=== PATIENT | female | born 1985 | race Caucasian/White ===

== ENCOUNTER 2016-10-13 18:06 | Emergency (ER) ==
[2016-10-13 18:20] VITALS: BP 106/56
[2016-10-13] MEDS ORDERED: TYLENOL PO ONE (18:22)
--- NOTE | 2016-10-13 19:54 | PROVIDER DOCUMENTATION ---
HPI-Respiratory General - General Chief Complaint: Flu Symptoms Stated Complaint: FLU SX Time Seen by Provider: 10/13/16 19:35 Source: patient Allergies/Adverse Reactions: Patient Allergies Allergy/AdvReac Type Severity Reaction Status Date / Time Penicillins Allergy ANAPHYLAXIS Verified 07/18/14 08:43 cephalexin monohydrate * AdvReac ANAPHYLAXIS Verified 06/04/16 00:08 [From Keflex] morphine AdvReac Unknown Verified 06/04/16 00:08 Home Medications: Home Medication List Medication Instructions Recorded Confirmed Last Taken Type Spironolactone 50 mg PO QAM 04/06/16 06/03/16 Unknown History Buprenorphine/Naloxone S.l. 1 applicatn TOP BID 06/03/16 06/03/16 Unknown History [Suboxone 8 mg/2 mg] Furosemide 40 mg PO BID 06/03/16 06/03/16 Unknown History - History of Present Illness-Resp Nature of Presenting Problem: 31 y/o female presents to the ER with complaint fever and cough x 1 week. Pt also states that she has some diarrhea. Pt is with infant son who has similar symptoms. Onset/Duration: reports: 1 week ago Timing: reports: still present Cough Quality/Degree: reports: mild Associated Symptoms: reports: cough, fever/chills, flu-like symptoms, nasal congestion, sinus pain Review of Systems - Adult - REVIEW OF SYSTEMS - ADULT Constitutional: reports: fever. denies: chills Eyes: reports: no symptoms reported Ears, Nose, Mouth & Throat: reports: no symptoms reported Cardiovascular: reports: no symptoms reported Respiratory: reports: cough. denies: shortness of breath Gastrointestinal: reports: no symptoms reported Genitourinary: reports: no symptoms reported Musculoskeletal: reports: no symptoms reported Integumentary: reports: no symptoms reported Neurological: reports: no symptoms reported Psychiatric: reports: no symptoms reported Endocrine: reports: no symptoms reported Hematologic/Lymphatic: reports: no symptoms reported Allergic/Immunologic: reports: no symptoms reported All Other Systems: Reviewed and Negative Past History - Adult - PAST MEDICAL HISTORY-ADULT Review of Records: reports: Nursing Assessment Review, Medications Reviewed Gastrointestinal: reports: hemorrhoids Musculoskeletal: reports: other (disc disease ) Psychiatric: reports: anxiety, depression - PRIOR SURGERIES/PROCEDURES Surgical/Procedure History: reports: tonsillectomy, other, cholecystectomy, gastric bypass - IMMUNIZATION STATUS Childhood Immunizations: See Nurse Assessment Flu Vaccine: See Nurse Assessment - FAMILY HISTORY Family History: reviewed, not pertinent Physical Exam-General - CONSTITUTIONAL General Appearance: alert, no apparent distress - EYES Eyes: PERRL/EOMI, pink conjunctivae - HEAD, EARS, NOSE, MOUTH & THROAT HENMT: moist mucous membranes, normal ENT inspection - NECK Neck: non-tender, supple - RESPIRATORY Respiratory: no respiratory distress, no accessory muscle use - CARDIOVASCULAR Cardiovascular: normal peripheral pulses, regular rate, rhythm - MUSCULOSKELETAL Back Exam: normal inspection, no CVA tenderness Extremity: normal gait, normal inspection - SKIN Integumentary: normal color, warm/dry - NEUROLOGIC Neurologic: grossly normal, no motor/sensory deficits - PSYCHIATRIC Psych/Mental Status: normal mood/affect, normal thought content, normal thought process, oriented x 3 Progress - PLAN OF CARE/RESULTS Progress/Plan/Lab Results: Vital Signs - 24 hr 10/13/16 18:17 Temperature 100.8 F H Pulse Rate 92 H Respiratory 18 Rate Blood Pressure 106/56 O2 Sat by Pulse 98 Oximetry Orders Category Date Time Status INFLUENZA SCREEN PL Stat Lab 10/13/16 18:28 Completed Acetaminophen [Tylenol] Med 10/13/16 18:22 Discontinued 1,000 mg PO NOW ONE Laboratory Tests 10/13/16 18:28 Influenza A (Rapid) NEGATIVE Influenza B (Rapid) NEGATIVE Departure - Departure Time of Disposition Order: 20:01 DIAGNOSIS: Upper respiratory infection Qualifiers: URI type: unspecified URI Qualified Code(s): J06.9 - Acute upper respiratory infection, unspecified Disposition: HOME 01 Certified Medical Emergency: Emergent Condition: Stable Additional Instructions: ED Follow Up Instructions: You have been treated by a care provider in the Emergency Department. These instructions are being provided to you so you can have an understanding of how to care for yourself upon discharge. Upon discharge from the Emergency Department, you are responsible for making arrangements for follow-up care by a physician of your choice. Take all prescribed medications as directed. Return to the Emergency Department immediately for any new or worsening symptoms. You may call the Physician Referral phone number at [phone] to obtain a list of Physicians who are taking new patients. Referrals: None,PCP [Primary Care Provider] - Irasema Manzano MD [STAFF PHYSICIAN] - Forms: Return to School/Parent Work Instructions: Upper Respiratory Infection, Adult Attestation - Scribe Verification/Attestation Scribe:: Verona Ridley Acting as Scribe for:: Zay Chand Scribe documention review:: This chart was documented by a scribe and accurately reflects the service the provider performed and the decisions made by the provider.
== END 2016-10-13 20:27 | disposition home or self-care (01) ==
LOC: P.ED 18:06
DX: J06.9 Acute upper respiratory infection, unspecified (principal); R50.9 Fever, unspecified; R05 Cough; R19.7 Diarrhea, unspecified; R09.81 Nasal congestion; J34.89 Other specified disorders of nose and nasal sinuses; Z79.899 Other long term (current) drug therapy; Z98.84 Bariatric surgery status
CPT/HCPCS: 87804; 99283

== ENCOUNTER 2018-11-22 21:17 | Inpatient (IN) ==
[2018-11-23] MEDS ORDERED: DILAUDID IV ONE ×3 (00:56→08:46)
[2018-11-23] MEDS ORDERED: AZACTAM 2 GM in NS 100 ML IV ONE (01:07)
[2018-11-23 01:26] LABS: BASO# 0.01 X1000 (0.0-0.2); BASO% 0.4 % (0.0-0.8); EOS# 0.05 X1000 (0.0-0.7); EOS% 2.2 % (0.0-10.0); HEMATOCRIT 33.2 % (37.0-47.0); HEMOGLOBIN 10.4 g/dL (12.0-16.0); LYMPH# 0.79 X1000 (1.2-3.4); LYMPH% 35.1 % (20.5-51.1); MCH 34.1 PG (27-31); MCHC 31.3 g/dL (33-37); MCV 108.9 FL (81-99); MONO# 0.27 X1000 (0.11-0.59); MPV 9.9 FL (7.4-10.4); NEUT# 1.13 X1000 (1.4-6.5); NEUT% 50.3 % (42.2-75.2); PLT 185 X1000 (130-400); RBC 3.05 XMIL (4.2-5.4); WBC 2.25 X1000 (4.8-10.8)
[2018-11-23 02:00] LABS: AGAP 9; ALB/GLOB RATIO 0.8; ALBUMIN 2.3 g/dL (3.5-5.0); ALKALINE PHOSPHATASE 215 U/L (32-104); BUN 16 mg/dL (8-22); CALCIUM 7.8 mg/dL (8.8-10.2); CHLORIDE 110 mmol/L (98-107); COSMO 281; CREATININE 0.6 mg/dL (0.5-0.9); ESTIMATED GFR > 60; GLUCOSE 70 mg/dL (70-104); GOT 455 U/L (10-30); GPT 170 U/L (10-36); POTASSIUM 4.1 mmol/L (3.5-5.1); SODIUM 141 mmol/L (136-145); TCO2 22 mmol/L (25-35); TOTAL BILIRUBIN 1.71 mg/dL (0.20-1.00); TOTAL PROTEIN 5.2 g/dL (6.3-8.3)
--- NOTE | 2018-11-23 02:01 | PROVIDER DOCUMENTATION ---
This chart was entered by Neela Zelaya Scribe, acting as scribe for Berhane Benjamin MD. HPI-Rash/Wound/ReCheck - General Chief Complaint: Post Op Complaint Stated Complaint: POST OP COMPLAINT-GY SUZI DUMONT Time Seen by Provider: 11/22/18 23:56 Source: patient Allergies/Adverse Reactions: Allergies Allergy/AdvReac Type Severity Reaction Status Date / Time Penicillins Allergy ANAPHYLAXIS Verified 08/13/18 11:46 cephalexin monohydrate * AdvReac ANAPHYLAXIS Verified 08/13/18 11:46 [From Keflex] morphine AdvReac Unknown Verified 08/13/18 11:46 Home Medications: Home Medication List Medication Instructions Recorded Confirmed Last Taken Type Apixaban [Eliquis] 2.5 mg PO BID 06/18/17 08/01/18 07/30/18 History 2.5 mg Midodrine [Proamatine] 5 mg PO TID 06/18/17 08/01/18 07/29/18 History 5mg Multivitamin [Multivitamins] 1 each PO DAILY 06/18/17 08/01/18 07/30/18 History 1 Pregabalin [Lyrica] 100 mg PO BID 06/18/17 08/01/18 07/31/18 History 100mg Escitalopram Oxalate [Lexapro] 10 mg PO 08/01/18 07/31/18 History 10mg Rifaximin [Xifaxan] 550 mg PO BID 08/01/18 08/01/18 07/31/18 History 550mg Cyanocobalamin (Vitamin B-12) 1,000 mcg PO DAILY #30 tab 08/09/18 Unknown Rx [B-12] Iron,Carbonyl/Folic Acid/Mv-Mn 1 ea PO DAILY #30 tab 08/09/18 Unknown Rx [Active Fe Tablet] Levofloxacin [Levaquin] 500 mg PO DAILY #7 tab 08/09/18 Unknown Rx Oxycodone HCl/Acetaminophen 1 ea PO Q4H PRN #30 tab 08/09/18 Unknown Rx [Percocet 10-325 mg Tablet] Ibuprofen [Motrin] 600 mg PO Q6-8H PRN PRN #30 tab 08/13/18 Unknown Rx Oxycodone/APAP 10 mg/325 mg 1 ea PO Q4H PRN PRN #20 tab 08/13/18 Unknown Rx [Percocet-10] - History of Present Illness-Dermatology Nature of Presenting Problem: Pt presents to ED w/ large, weeping and painful wound to left lower leg. 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 Has had surgery on R leg in June and had a significant amount of soft tissue removed. Pt was last on Levaquin 1 month ago. Location: reports: lower extremity (left lower leg) Quality: reports: painful Severity: reports: severe Onset/Duration: reports: gradual Timing: reports: still present Identifiable cause?: Yes Locality of [place]: Home Similar Symptoms Previously?: Yes Recently seen or treated by another doctor?: Yes Review of Systems - Adult - REVIEW OF SYSTEMS - ADULT Constitutional: reports: no symptoms reported. denies: chills, fever Eyes: reports: no symptoms reported Ears, Nose, Mouth & Throat: reports: no symptoms reported Cardiovascular: reports: no symptoms reported. denies: chest pain, edema Respiratory: reports: no symptoms reported. denies: cough, shortness of breath, wheezing Gastrointestinal: reports: nausea. denies: abdominal pain, diarrhea, vomiting Genitourinary: reports: no symptoms reported Musculoskeletal: reports: no symptoms reported Integumentary: reports: see HPI Neurological: reports: no symptoms reported. denies: dizziness/vertigo, headache/migraines Psychiatric: reports: no symptoms reported Endocrine: reports: no symptoms reported Hematologic/Lymphatic: reports: no symptoms reported Allergic/Immunologic: reports: no symptoms reported All Other Systems: Reviewed and Negative Past History - Adult - PAST MEDICAL HISTORY-ADULT Review of Records: reports: Old Records Reviewed, Nursing Assessment Review, Medications Reviewed, Social history reviewed & non-contributory. Major Childhood Illnesses: reports: denies history Cardiovascular: reports: blood clots, CHF (post ), pericardial disease (effusion) Respiratory: reports: denies history Gastrointestinal: reports: liver disease (post ), other (anasarca) Obstetrical/Gynecological: reports: denies history Genitourinary: reports: denies history Musculoskeletal: reports: other (disc disease ) Neurological: reports: denies history Psychiatric: reports: anxiety, depression Endocrine/Immune: reports: denies history Other Conditions: reports: denies history - PRIOR SURGERIES/PROCEDURES Surgical/Procedure History: reports: tonsillectomy, other, cholecystectomy, gastric bypass - IMMUNIZATION STATUS Childhood Immunizations: See Nurse Assessment Flu Vaccine: See Nurse Assessment - FAMILY HISTORY Family History: reviewed, not pertinent - SOCIAL HISTORY Smoking: denies, non-smoker Substance Use: none/never Alcohol Use Frequency: never Living Situation: family Physical Exam-General - PHYSICAL EXAM-ADULT Initial Vital Signs Reviewed: Yes - CONSTITUTIONAL General Appearance: alert, mild distress - EYES Eyes: PERRL/EOMI, pink conjunctivae - HEAD, EARS, NOSE, MOUTH & THROAT HENMT: normocephalic/atraumatic, moist mucous membranes, normal ENT inspection, TMs normal, pharynx normal - NECK Neck: non-tender, full range of motion, supple, normal inspection - RESPIRATORY Respiratory: chest non-tender, lungs clear, normal breath sounds. negative: crackles, rales, rhonchi, stridor, wheezing - CARDIOVASCULAR Cardiovascular: normal peripheral pulses, regular rate, rhythm. negative: no edema - GASTROINTESTINAL (ABDOMEN) Abdominal Exam: normal bowel sounds, non tender, soft. negative: guarding, rigid, rebound, tenderness - LYMPHATIC Lymphatic: no adenopathy - MUSCULOSKELETAL Back Exam: normal inspection, no CVA tenderness, no vertebral tenderness Extremity: swelling, tenderness, other (right lower leg swelling w/ approx 60 cm scar, healed, with significant amount of soft tissue removed left lower leg has open, weeping wound that is 230 cm long and 90cm wide) Peripheral Pulses: radial (R): 2+, radial (L): 2+, dorsalis-pedis (R): 2+, dorsalis-pedis (L): 2+ - SKIN Integumentary: normal color, warm/dry, other (right lower leg swelling w/ approx 60 cm scar, healed, with significant amount of soft tissue removed left lower leg has open, weeping wound that is 230 cm long and 90cm wide) - NEUROLOGIC Neurologic: grossly normal - PSYCHIATRIC Psych/Mental Status: normal mood/affect, normal thought content, normal thought process, oriented x 3 Progress - PLAN OF CARE/RESULTS Progress/Plan/Lab Results: Vital Signs - 8 hr 11/22/18 21:25 11/23/18 00:17 11/23/18 00:30 Temperature 98.2 F Pulse Rate 79 69 Respiratory Rate 16 12 17 Blood Pressure 101/67 100/64 104/58 O2 Sat by Pulse Oximetry 96 100 96 11/23/18 01:00 Temperature Pulse Rate 65 Respiratory Rate 15 Blood Pressure 107/52 O2 Sat by Pulse Oximetry 100 Laboratory Results - last 24 hr 11/23/18 11/23/18 11/23/18 00:46 00:46 01:08 WBC 2.25 L RBC 3.05 L Hgb 10.4 L Hct 33.2 L MCV 108.9 H MCH 34.1 H MCHC 31.3 L RDW Std Deviation 14.0 Plt Count 185 MPV 9.9 Immature Gran % (Auto) 0.0 Neut % (Auto) 50.3 Lymph % (Auto) 35.1 Rush % (Auto) 12.0 H Eos % (Auto) 2.2 Baso % (Auto) 0.4 Immature Gran # (Auto) 0.00 Neut # (Auto) 1.13 L Lymph # (Auto) 0.79 L Rush # (Auto) 0.27 Eos # (Auto) 0.05 Baso # (Auto) 0.01 Sodium 141 Potassium 4.1 Chloride 110 H Carbon Dioxide 22 L Anion Gap 9 BUN 16 Creatinine 0.6 Estimated GFR/1.73 m2 > 60 BUN/Creatinine Ratio 27 Glucose 70 Calculated Osmolality 281 Calcium 7.8 L Total Bilirubin 1.71 H AST 455 H ALT 170 H Alkaline Phosphatase 215 H Total Protein 5.2 L Albumin 2.3 L Globulin 2.9 Albumin/Globulin Ratio 0.8 Plasma Lactate 0.8 Orders Category Date Time Status BLOOD CULTURE [BLDCUL] Stat Lab 11/23/18 01:08 Ordered CBC WITH ELECTRONIC DIFF [HEME] Stat Lab 11/23/18 00:46 Completed CMP [COMPREHENSIVE METABOLIC PANEL] [CHEM] Stat Lab 11/23/18 00:46 Completed LACTATE, PLASMA [CHEM] Stat Lab 11/23/18 01:08 Completed WOUND CULTURE INC GRAM STAIN [RM] Routine Lab 11/22/18 21:47 Received Aztreonam [Azactam] 2 gm Med 11/23/18 01:07 Discontinued 0.9% Sodium Chloride Inj [Ns] 100 ml IV NOW Hydromorphone [Dilaudid] Med 11/23/18 00:56 Discontinued 2 mg IV NOW ONE A/P severe cellulitis of Right lowe r leg, started aztreonam and dilaudid. vitals stable. will admit for IV antiobiotics. Result Diagrams: 11/23/18 00:46 11/23/18 00:46 - CONSULTS/PCP/HOSPITALIST Notification #1 *Consult/PCP/Hospitalist*: Dr mora Time Discussed: 02:13 Consult Disposition: Admit Departure - Departure Date of Disposition Decision: 11/23/18 Time of Disposition Decision: 02:13 DIAGNOSIS: Cellulitis Disposition: ADMITTED INPATIENT 09 Certified Medical Emergency: Emergent Condition: Stable Referrals and Follow-Ups: None,PCP [Primary Care Provider] - - Critical Care Note This patient required my direct & personal management of CC.: No Attestation - Physician/ TONY Attestation Patient care was provided by Advanced Practice Provider:: No The physician spent face to face time with patient:: Yes Advanced Practice Provider documentation review:: Supervising physician onsite and consulted in the evaluation and care of this patient. The physician did have a face to face encounter with the patient. This chart was documented by the indicated scribe, (Neela Zelaya, Scribe) and accurately reflects the services I performed and decisions made by me, Berhane Benjamin MD, as attested by the provider's signature.
[2018-11-23] MEDS ORDERED: PERCOCET-10 PO PRN (03:11)
[2018-11-23 05:41] LABS: INR 1.14; PROTIME 15.5 Seconds (11.0-16.0)
[2018-11-23 05:42] LABS: PTT 53.9 Seconds (22.3-41.8)
[2018-11-23] MEDS ORDERED: VANCOMYCIN IV PER PHARMACY MISC SCH (06:00)
[2018-11-23] MEDS ORDERED: VANCOMYCIN 2,000 MG in NS 500 ML IV ONE (07:00)
[2018-11-23] MEDS ORDERED: ZOFRAN IV PRN (09:26)
[2018-11-23] MEDS ORDERED: TYLENOL PO PRN (09:28)
[2018-11-23] MEDS: AZACTAM 1 GM in NS 50 ML IV SCH ×2 (11:54→22:33)
[2018-11-23] MEDS: LYRICA PO SCH ×2 (11:55→20:22)
[2018-11-23] MEDS: CENTRUM TABLET PO SCH (11:55)
[2018-11-23] MEDS: ELIQUIS PO SCH ×2 (11:55→20:24)
[2018-11-23] MEDS: PROAMATINE PO SCH ×3 (11:55→18:13)
[2018-11-23] MEDS: MYCOSTATIN SUSP PO SCH ×4 (11:55→20:24)
[2018-11-23] MEDS: OXY IR PO PRN ×2 (11:56→20:23)
[2018-11-23] MEDS: XIFAXAN PO SCH ×2 (11:56→20:24)
[2018-11-23] MEDS: LASIX PO SCH (11:56)
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
[2018-11-23] MEDS: DILAUDID IV PRN ×3 (14:07→21:47)
[2018-11-23] MEDS ORDERED: VANCOMYCIN 1,600 MG in NS 500 ML IV ONE (18:00)
[2018-11-23] MEDS: SANTYL OINT TOP SCH (21:47)
[2018-11-24] MEDS: DILAUDID IV PRN ×7 (01:02→20:02)
[2018-11-24] MEDS: OXY IR PO PRN ×3 (03:04→17:21)
[2018-11-24] MEDS: AZACTAM 1 GM in NS 50 ML IV SCH ×3 (06:36→23:30)
[2018-11-24 08:11] LABS: BASO# 0.01 X1000 (0.0-0.2); BASO% 0.3 % (0.0-0.8); EOS# 0.02 X1000 (0.0-0.7); EOS% 0.7 % (0.0-10.0); HEMATOCRIT 27.5 % (37.0-47.0); HEMOGLOBIN 8.4 g/dL (12.0-16.0); LYMPH# 0.87 X1000 (1.2-3.4); LYMPH% 30.1 % (20.5-51.1); MCH 33.5 PG (27-31); MCHC 30.5 g/dL (33-37); MCV 109.6 FL (81-99); MONO# 0.38 X1000 (0.11-0.59); MONO% 13.1 % (1.7-9.3); MPV 9.8 FL (7.4-10.4); NEUT# 1.61 X1000 (1.4-6.5); NEUT% 55.8 % (42.2-75.2); PLT 172 X1000 (130-400); RBC 2.51 XMIL (4.2-5.4); WBC 2.89 X1000 (4.8-10.8)
[2018-11-24 08:25] LABS: BANDS 2 % (0-1); LYMPHS 34 % (21-51); MONO 8 % (1-9); SEGS 54 % (42-75)
--- NOTE | 2018-11-24 09:15 | Diag Imaging Result Doc PS360 ---
EXAM: US ABDOMEN-COMPLETE HISTORY: Transaminitis TECHNIQUE: Abdominal ultrasound COMPARISON: 12/08/2012 FINDINGS: The pancreas is obscured. Normal inferior vena cava. No abdominal aortic aneurysm. There is fatty infiltration of the liver. No focal hepatic lesion. The gallbladder is not present. The common bile duct measures 5 mm. There is a 3.1 cm cyst in the right kidney. No hydronephrosis. The spleen measures 14.6 cm in length. Trace fluid about the spleen.. Normal left kidney. No hydronephrosis. IMPRESSION: 1.Fatty infiltration of the liver 2.Splenomegaly 3.Trace free fluid 4.Cholecystectomy Electronically signed by Hemant Gonzalez 11/24/2018 9:13 AM
[2018-11-24] MEDS: ALDACTONE PO SCH (09:19)
[2018-11-24] MEDS: MYCOSTATIN SUSP PO SCH ×4 (09:19→20:01)
[2018-11-24] MEDS: XIFAXAN PO SCH ×2 (09:19→20:01)
[2018-11-24] MEDS: PROAMATINE PO SCH ×3 (09:19→17:22)
[2018-11-24] MEDS: LASIX PO SCH (09:20)
[2018-11-24] MEDS: LYRICA PO SCH ×2 (09:20→20:15)
[2018-11-24] MEDS: ELIQUIS PO SCH ×2 (09:20→20:02)
[2018-11-24] MEDS: CENTRUM TABLET PO SCH (09:20)
[2018-11-24 10:26] LABS: AGAP 6; ALB/GLOB RATIO 0.8; ALBUMIN 1.9 g/dL (3.5-5.0); ALKALINE PHOSPHATASE 196 U/L (32-104); BUN 13 mg/dL (8-22); CHLORIDE 112 mmol/L (98-107); COSMO 281; CREATININE 0.5 mg/dL (0.5-0.9); ESTIMATED GFR > 60; GLUCOSE 83 mg/dL (70-104); GOT 163 U/L (10-30); GPT 116 U/L (10-36); POTASSIUM 4.1 mmol/L (3.5-5.1); SODIUM 141 mmol/L (136-145); TCO2 23 mmol/L (25-35); TOTAL BILIRUBIN 0.84 mg/dL (0.20-1.00); TOTAL PROTEIN 4.4 g/dL (6.3-8.3)
[2018-11-24 10:28] LABS: HEPATITIS PROFILE ACUTE SEE COMMENTS
[2018-11-24 10:30] LABS: CALCIUM 7.2 mg/dL (8.8-10.2)
[2018-11-24] MEDS ORDERED: VANCOMYCIN 1,600 MG in NS 250 ML IV SCH (11:00)
[2018-11-24] MEDS: SANTYL OINT TOP SCH (12:06)
--- NOTE | 2018-11-24 12:11 | PROGRESS NOTE ---
DATE: 11/24/2018 SUBJECTIVE: No changes compared with yesterday. She is still complaining of severe pain at the level of the left lower extremity. She has a large wound that is covered with a dressing. I do not see any secretion at this moment but probably looks infected. OBJECTIVE: Vital Signs: Temperature 99.2 degrees, pulse 79, respiratory rate 18, blood pressure 97/48, oxygen saturation 100% on room air. HEENT: Head normocephalic. No trauma. PERRLA. Neck: Supple. No JVD. No masses. Central trachea. Chest: Clear to auscultation. No wheezing. No rales. Abdomen: Soft, nontender, nondistended. No hepatosplenomegaly. Extremities: Right lower extremity with some eschar and deformity at the level of the leg. Her left lower extremity has a large wound at the level of the anterior part of the leg with redness around. Neurological Examination: The patient is alert and oriented x3. No focal deficits. Laboratory: WBC 2.8, hemoglobin 8.4, hematocrit 27.5, platelets 172,000. Sodium 141, potassium 4.1, chloride 112, bicarbonate 23, BUN 13, creatinine 0.5, glucose 83, calcium 7.2. AST 163, ALT 116, alkaline phosphatase 196, albumin 1.9. ASSESSMENT AND PLAN: 1. Left lower extremity cellulitis and wound. We will continue with antibiotics. Infectious disease department and surgery department consulted for this patient. 2. Chronic pain. Continue with home medication. 3. History of deep venous thrombosis, on chronic anticoagulation with Eliquis which we will continue. 4. History of chronic swelling in bilateral lower extremities. Apparently, this has been getting worse. We will continue with her current medications which are Lasix and spironolactone. 5. Transaminitis in a patient with liver cirrhosis. She has been following with her regular medical sociologist. We will continue with rifaximin which she has been taking for a couple of years now and we will continue with diuretics. 6. Oral candidiasis. Continue with the same treatment. 7. Deep vein thrombosis prophylaxis with Eliquis. cc: Anton De La O MD
--- NOTE | 2018-11-24 15:28 | INFECTIOUS DISEASE PROGRESS NO ---
DATE: 11/24/2018 PRESENT ILLNESS: Ms. Hurtado has an infected wound to her left lower extremity which is growing a gram-negative amber. The patient is status post debridement of skin and subcutaneous tissue with fasciotomies of the left leg due to necrotizing fasciitis back in July 2018. There is a beginning of oral candidiasis as well as a fungal dermatitis to the groin area. MEDICATIONS: She is currently receiving IV vancomycin per pharmacy dosing and aztreonam 1 g IV every 8 hours as well as nystatin swish and swallow 4 times a day. PHYSICAL EXAMINATION: Vital Signs: Temperature is 99.2 degrees, pulse rate 79, respiratory rate 18, blood pressure 97/48, O2 saturation 100% on room air. General: This is a chronically ill- appearing young female. She is sitting up on the side of the bed currently in no acute distress. HEENT: Atraumatic, normocephalic. Oral mucous membranes are erythematous with complaints of burning pain to her tongue at times. Conjunctivae are pale. Neck: Supple. Trachea is midline. Respiratory: Lung sounds are clear to auscultation bilaterally. Diminished in the bases. Cardiovascular: Heart rate and rhythm are regular. Normal sinus rhythm on the monitor. Abdomen: Soft, obese and nontender. Bowel sounds are active. Integumentary: Left lower extremity has wounds to the left calf x2. These cover much of her anterior calf and have beefy red tissue. Neurologic: She is awake, alert, and oriented and able to walk around the room independently. LABORATORY AND X-RAY: Today, her white count is 2.89, hemoglobin 8.4, platelet count 172,000, absolute neutrophil count is 1600. Creatinine is 0.5, estimated GFR is greater than 60. Total bilirubin 0.84, AST 163, ALT 116, alkaline phosphatase 196. Abdominal ultrasound shows fatty liver and splenomegaly. ASSESSMENT AND PLAN: Ms. Hurtado has an infection to her left lower extremity which is growing a gram-negative amber. She is receiving aztreonam due to her allergy to penicillins with a previous reaction of anaphylaxis. She has noted leukopenia, however, her absolute neutrophil count is normal at 1600. So at this point, it appears that neutropenia is not the cause of prevention of wound healing. She is also anemic today. Since there is no evidence of Gram positive cocci, we will go ahead and discontinue vancomycin for now and hopefully her blood count will normalize. For now, we will continue the aztreonam as ordered pending the left leg culture and blood cultures. She also has the start of an oral candidiasis, so we will continue nystatin swish and swallow. There is a fungal dermatitis and I have put in an order for clotrimazole cream to the groin area twice a day. Since she has had recurrent infections, we will also check her immunoglobulin levels. These plans have been discussed with and recommended by Dr. Robles. COMORBIDITIES: For Ms. Hurtado include congestive heart failure, deep venous thrombosis with chronic anticoagulation, chronic pain with narcotic use, cirrhosis, and gastric bypass. Dictated by CHAVA Bellamy for Vinicius Robles MD This chart was documented by, CHAVA Bellamy and accurately reflects the services performed, treatment plan and medical decisions as attested by the providers signature Vinicius Robles MD. cc: Vinicius Robles MD MTDD
--- NOTE | 2018-11-24 15:41 | GENERAL SURGERY CONSULTATION ---
DATE: 11/24/2018 REASON FOR CONSULTATION: Left lower extremity cellulitis and large wound. HISTORY OF PRESENT ILLNESS: This is a 33-year-old female well known to me from previous admission for necrotizing soft tissue wound of her left leg and I have followed her in my outpatient clinic several times since then. She missed her recent appointment due to other family obligations. She reports a low-grade fever, nausea and increase in the size of her wound over the last few days as well as increased drainage. She continues to have constant severe pain with her leg which is a chronic thing for her. Her wound care at home consists of saline and Vashe to cleanse the wound and Santyl ointment on the wound to be done daily. PAST MEDICAL HISTORY: 1. Necrotizing fasciitis of both lower extremities. 2. History of cirrhosis. 3. -related congestive heart failure. 4. Chronic lower extremity edema. 5. Kidney disease. 6. Degenerative disk disease. 7. Chronic pain. 8. History of right lower extremity DVT. 9. Know history of leukopenia and anemia. PAST SURGICAL HISTORY: 1. Bilateral lower extremity debridements. 2. Right leg skin graft. 3. Cholecystectomy. 4. Gastric bypass. 5. Tubal ligation. 6. . 7. Tonsillectomy. SOCIAL HISTORY: She denies tobacco, alcohol or illicit drug use. FAMILY HISTORY: Positive for diabetes and immune disorder. ALLERGIES: Penicillin, Keflex, morphine. HOME MEDICATIONS: Eliquis, Lasix, midodrine, multivitamin, oxycodone, Lyrica, Xifaxan, and Aldactone. REVIEW OF SYSTEMS: Ten systems reviewed and negative except as noted above. PHYSICAL EXAMINATION: Vital Signs: Temperature 99.2 degrees, pulse 78, respirations 18, blood pressure 97/48, O2 saturation 100%. General: She is a well-developed female in no distress who looks her stated age. HEENT: Normocephalic, atraumatic. Extraocular muscles intact. Pupils equal, round, reactive to light. Sclerae anicteric. Neck: Supple no thyromegaly. CV: Regular rate and rhythm. Respiratory: Bilateral breath sounds. No work of breathing. GI: Soft, nontender. No organomegaly or mass. MUSCULOSKELETAL: Moves all extremities equally and well. Extremities: She does have bilateral lower extremity edema. No cyanosis. Skin: The left lower leg has a large open wound with granulation tissue present throughout most of the wound bed. There is also a moderately heavy amount of slough and some necrotic soft tissue on the surface. The surrounding edges of the wound though appear to be healthy. There does not appear to be any tomás pus, crepitant's or significant erythema around the wound. I do not detect any odor. LABORATORY: White blood cell count 2.9, hemoglobin 8.4, hematocrit 27, platelet count 172,000. Electrolytes reviewed and unremarkable. Albumin however is noted to be 1.9. ASSESSMENT/PLAN: 33-year-old female with chronic nonhealing left lower extremity surgical wound. She does have a significant buildup of slough, which would benefit from debridement. She is unable to tolerate this at the bedside. We will plan to do this in the operating room tomorrow. Further care will be outpatient wet-to-dry dressing changes and future skin graft hopefully with the assistance of the wound VAC if I can secure 1 through social welfare research worker. I would anticipate her need for hospitalization to be about 2 more days. Wound cultures are pending as well as blood cultures at this time. cc: Kory Crocker MD
[2018-11-24] MEDS: LOTRIMIN 1% CREAM TOP SCH (20:01)
[2018-11-24] MEDS ORDERED: DILAUDID IV ONE (21:14)
[2018-11-25] MEDS: DILAUDID IV PRN ×6 (01:52→22:07)
[2018-11-25] MEDS: OXY IR PO PRN ×3 (03:24→23:51)
[2018-11-25] MEDS: AZACTAM 1 GM in NS 50 ML IV SCH ×2 (06:10→20:54)
[2018-11-25 07:08] LABS: BASO# 0.01 X1000 (0.0-0.2); BASO% 0.4 % (0.0-0.8); EOS# 0.03 X1000 (0.0-0.7); EOS% 1.3 % (0.0-10.0); HEMOGLOBIN 8.9 g/dL (12.0-16.0); LYMPH# 1.15 X1000 (1.2-3.4); LYMPH% 50.7 % (20.5-51.1); MCH 34.1 PG (27-31); MCHC 30.7 g/dL (33-37); MCV 111.1 FL (81-99); MONO# 0.23 X1000 (0.11-0.59); MONO% 10.1 % (1.7-9.3); MPV 9.6 FL (7.4-10.4); NEUT# 0.85 X1000 (1.4-6.5); NEUT% 37.5 % (42.2-75.2); PLT 132 X1000 (130-400); RBC 2.61 XMIL (4.2-5.4); WBC 2.27 X1000 (4.8-10.8)
[2018-11-25 07:10] LABS: ESTIMATED GFR > 60
[2018-11-25 07:13] LABS: AGAP 4; ALB/GLOB RATIO 0.8; ALBUMIN 1.8 g/dL (3.5-5.0); ALKALINE PHOSPHATASE 173 U/L (32-104); BUN 10 mg/dL (8-22); CHLORIDE 111 mmol/L (98-107); COSMO 274; CREATININE 0.4 mg/dL (0.5-0.9); GLUCOSE 79 mg/dL (70-104); GOT 80 U/L (10-30); GPT 86 U/L (10-36); POTASSIUM 4.3 mmol/L (3.5-5.1); SODIUM 138 mmol/L (136-145); TCO2 23 mmol/L (25-35); TOTAL BILIRUBIN 0.56 mg/dL (0.20-1.00); TOTAL PROTEIN 4.1 g/dL (6.3-8.3)
[2018-11-25] MEDS ORDERED: CALCIUM GLUCONATE 2 GM in NS 100 ML IV ONE (09:32)
--- NOTE | 2018-11-25 10:32 | PROGRESS NOTE ---
DATE: 11/25/2018 SUBJECTIVE: The patient reportedly is still complaining of severe pain at the level of the left lower extremity. No other complaints noted. OBJECTIVE: Vital signs: Temperature is 98.2, heart rate 65, respiratory rate 16, blood pressure 109/58, O2 saturation is 100% on room air. General: This is a 33-year-old female lying in bed, in no acute distress. HEENT: Head is normocephalic and atraumatic. Neck: No JVD. No lymphadenopathy. No carotid bruit. No thyromegaly. Cardiovascular: S1 and S2 heard. No murmurs, rubs or gallops. Regular rate and rhythm. Respiratory: Clear bilaterally to auscultation. No work of breathing or using accessory muscles. Abdomen is soft, nontender to palpation. Bowel sounds present. No organomegaly. Extremities: Right lower extremity with some scar and deformity at the level of the leg, and left lower extremity covered by dressing. Neurologic: The patient is alert and oriented x3, moving all 4 extremities. DIAGNOSTIC DATA: White cell count is 2.27, hemoglobin 8.9, hematocrit 29.0, platelets 132. BMP remarkable for calcium 7.0, creatinine 0.4, carbon dioxide 23. ASSESSMENT AND PLAN: 1. Left lower extremity cellulitis and wound. General Surgery has been consulted. She is going to have surgical debridement in the OR today. For this infection, considering that she is allergic to penicillin and cephalexin, Dr. Robles is onboard. He is directing antibiotics. Currently she is receiving aztreonam. 2. Chronic pain with narcotic dependence. The patient reports she continued to hurt despite receiving Dilaudid 1 mg IV q.3 hours p.r.n. I highly advised her to find a pain clinic where she can be helped to get off of the OxyContin that she has been taking for years. I do not think she truly needs to have an increase in pain medication. We will continue with the same management. 3. Transaminitis in a patient with liver cirrhosis. Transaminases are getting better. Hepatitis panel is negative. I do not know exactly why the patient has this problem, but the patient has been seen by GI doctor before. We will continue with home medications. 4. Oral candidiasis. We will continue with nystatin suspension. 5. DVT prophylaxis with Eliquis. 6. History of deep venous thrombosis, on chronic anticoagulation with Eliquis. Of course, this medication has been stopped for surgery. We will resume it after the patient is done with that. cc: Tom Vasquez MD
[2018-11-25] MEDS ORDERED: NS 500 ML ONE (10:55)
--- NOTE | 2018-11-25 13:41 | INFECTIOUS DISEASE PROGRESS NO ---
DATE: 11/25/2018 PRESENT ILLNESS: The patient has a Pseudomonas aeruginosa infection of her left lower extremity which previously had necrotizing fasciitis on it. MEDICATIONS: The patient is receiving aztreonam, and also she was started on nystatin swish and swallow in case she had the early beginning of a Danna and she also is on nystatin in case the patient has early beginning of oral candidiasis. This is day 2 of treatment with aztreonam, and this is day 1 of treatment with nystatin. PHYSICAL EXAMINATION: Vital Signs: Temperature is 98.4 degrees, pulse 69, respirations 16, blood pressure is 90/48. General: This is a chronically ill-appearing young female. She is in no acute distress at this time. HEENT: She can hear my spoken words and see near objects. She does not have any white coating on her tongue. Neck: No pain with movement. Lungs: Clear to auscultation. Cardiovascular: Heart rate is regular. Abdomen: Soft and nontender. Extremities: The patient has a large dressing around the left leg. The dressing is intact. Neurologic: The patient is alert. She can move her extremities. There is no tremor. LAB AND X-RAY: The patient had an ultrasound yesterday which showed a fatty liver and splenomegaly. Culture from the patient's left leg Pseudomonas was isolated. The patient's immunoglobulin levels and specifically IgG and IgA are all normal. Liver function studies are improving. Creatinine is 0.4. GFR is greater than 60. The patient's CBC shows a white count of 2270, hemoglobin 8.9, and platelet count 132,000. ASSESSMENT AND PLAN: The patient has a Pseudomonas infected left leg. She also may have an early oral Danna mucositis of the mouth. I have asked the microbiology lab to send the Pseudomonas isolate for susceptibility testing against aztreonam. My plan now is to continue aztreonam pending the susceptibility data. Also, the plan is to continue nystatin swish and swallow. The patient is going to surgery today for surgery on her left leg. COMORBIDITIES: Congestive heart failure, deep venous thrombosis, chronic pain and narcotic use, cirrhosis of the liver, gastric bypass. The Pseudomonas infection is accompanying the leg that the patient had necrotizing fasciitis in. cc: Vinicius Robles MD
[2018-11-25] MEDS ORDERED: XYLOCAINE-MPF 2% ONE (14:41)
[2018-11-25] MEDS ORDERED: VERSED ONE (14:42)
[2018-11-25] MEDS ORDERED: DIPRIVAN 1% ONE (14:42)
[2018-11-25] MEDS ORDERED: FENTANYL ONE (15:01)
[2018-11-25] MEDS: DILAUDID ONE ×4 (16:10→16:37)
[2018-11-25] MEDS: PHENERGAN ONE ×2 (16:30→16:45)
[2018-11-25] MEDS ORDERED: OXY IR ONE (16:57)
[2018-11-25] MEDS: MYCOSTATIN SUSP PO SCH ×3 (17:11→20:54)
[2018-11-25] MEDS: XIFAXAN PO SCH ×2 (17:36→20:54)
[2018-11-25] MEDS: ALDACTONE PO SCH (17:36)
[2018-11-25] MEDS: SANTYL OINT TOP SCH (17:37)
[2018-11-25] MEDS: PROAMATINE PO SCH ×2 (17:37→17:38)
[2018-11-25] MEDS: LOTRIMIN 1% CREAM TOP SCH ×2 (17:38→20:55)
[2018-11-25] MEDS: LASIX PO SCH (17:38)
[2018-11-25] MEDS: LYRICA PO SCH ×2 (17:38→20:54)
[2018-11-25] MEDS: CENTRUM TABLET PO SCH (17:39)
[2018-11-25] MEDS: ELIQUIS PO SCH ×2 (17:39→20:54)
--- NOTE | 2018-11-25 18:23 | OPERATIVE NOTE ---
PROCEDURE DATE: 11/25/2018 PREOPERATIVE DIAGNOSIS: Nonhealing left leg ulcer. POSTOPERATIVE DIAGNOSIS: Nonhealing left leg ulcer. PROCEDURE: Debridement of skin and subcutaneous tissue greater than 20 square centimeters of left leg. SURGEON: Kory Crocker MD. ANESTHESIA: General. MORTGAGE BROKER: MARIO Lozada. ESTIMATED BLOOD LOSS: 25 mL. COMPLICATIONS: None apparent. FINDINGS: The wound had a moderate amount of slough throughout the wound bed. It measured 24 x 8 cm. TECHNIQUE: She was brought to the operating room and placed supine on the table. General anesthesia was induced. She was prepped and draped in usual sterile fashion. The wound was debrided sharply with a curette back to healthier bleeding edges. The wound was irrigated with saline and then pressure was held with a gauze, achieving adequate hemostasis. I then dressed the wound with 4x4s, an ABD pad, Kerlix gauze, and a Coban dressing. There were no apparent complications. She was awakened in stable condition and transferred to the recovery room. cc: Kory Crocker MD
[2018-11-25] MEDS: PERIDEX MT SCH (20:54)
[2018-11-26] MEDS: DILAUDID IV PRN ×7 (01:24→21:43)
[2018-11-26] MEDS: AZACTAM 1 GM in NS 50 ML IV SCH (04:15)
[2018-11-26] MEDS: OXY IR PO PRN ×4 (06:37→19:59)
[2018-11-26 07:00] LABS: BASO# 0.01 X1000 (0.0-0.2); BASO% 0.4 % (0.0-0.8); EOS# 0.04 X1000 (0.0-0.7); EOS% 1.5 % (0.0-10.0); HEMATOCRIT 31.2 % (37.0-47.0); HEMOGLOBIN 9.5 g/dL (12.0-16.0); LYMPH# 1.25 X1000 (1.2-3.4); LYMPH% 46.1 % (20.5-51.1); MCH 34.1 PG (27-31); MCHC 30.4 g/dL (33-37); MCV 111.8 FL (81-99); MONO# 0.22 X1000 (0.11-0.59); MONO% 8.1 % (1.7-9.3); MPV 10.1 FL (7.4-10.4); NEUT# 1.19 X1000 (1.4-6.5); NEUT% 43.9 % (42.2-75.2); PLT 157 X1000 (130-400); RBC 2.79 XMIL (4.2-5.4); RDW 14.1 % (11.5-14.5); WBC 2.71 X1000 (4.8-10.8)
[2018-11-26 07:04] LABS: AGAP 5; BUN 13 mg/dL (8-22); CALCIUM 7.3 mg/dL (8.8-10.2); CHLORIDE 112 mmol/L (98-107); COSMO 277; CREATININE 0.4 mg/dL (0.5-0.9); ESTIMATED GFR > 60; GLUCOSE 91 mg/dL (70-104); POTASSIUM 4.3 mmol/L (3.5-5.1); SODIUM 139 mmol/L (136-145); TCO2 22 mmol/L (25-35)
[2018-11-26] MEDS: PERIDEX MT SCH ×2 (08:11→20:00)
[2018-11-26] MEDS: MYCOSTATIN SUSP PO SCH ×4 (08:11→20:00)
[2018-11-26] MEDS: CENTRUM TABLET PO SCH (08:25)
[2018-11-26] MEDS: PROAMATINE PO SCH ×3 (08:26→16:09)
[2018-11-26] MEDS: ELIQUIS PO SCH ×2 (08:26→19:59)
[2018-11-26 08:29] LABS: LYMPHS 52 % (21-51); MONO 6 % (1-9); SEGS 42 % (42-75)
[2018-11-26] MEDS: ALDACTONE PO SCH (09:46)
[2018-11-26] MEDS: XIFAXAN PO SCH ×2 (09:47→20:00)
[2018-11-26] MEDS: LYRICA PO SCH ×2 (09:56→19:59)
[2018-11-26] MEDS ORDERED: SSD CREAM TOP SCH (10:00)
--- NOTE | 2018-11-26 10:40 | GENERAL SURGERY PROGRESS NOTE ---
DATE: 11/26/2018 SUBJECTIVE: She complains of left leg pain, which is baseline for her. OBJECTIVE: Vital signs: She is afebrile. Vital signs are stable. General: She is awake, alert, oriented x3. No acute distress. Extremities: The left leg wound was examined. It is clean. No active bleeding. LABORATORY DATA: White blood cell count 2.7, hemoglobin 9.5, hematocrit 31. Electrolytes reviewed and unremarkable. MICROBIOLOGY: The wound culture from 11/22/2018 grew Pseudomonas with intermediate susceptibility to Levaquin. ASSESSMENT AND PLAN: A 33-year-old female with a chronic nonhealing left leg surgical wound after necrotizing fasciitis which occurred several months ago. She had a superficial Pseudomonas infection on presentation. This is been debrided adequately. I will defer systemic antibiotics per Dr. Robles, but the wound looks clean and nonpurulent and there is no significant erythema in her leg. Topically we will try Silvadene cream to the wound once daily for the next 2 weeks. She will follow up in my office in 2 weeks, and we are planning future skin graft. cc: Kory Crocker MD
[2018-11-26] MEDS: SSD CREAM TOP SCH (11:18)
[2018-11-26] MEDS: LASIX PO SCH (12:13)
[2018-11-26] MEDS: LOTRIMIN 1% CREAM TOP SCH ×2 (12:15→20:00)
[2018-11-26 12:16] LABS: INR 1.13; PROTIME 15.4 Seconds (11.0-16.0)
--- NOTE | 2018-11-26 12:16 | INFECTIOUS DISEASE PROGRESS NO ---
DATE: 11/26/2018 PRESENT ILLNESS: The patient has a Pseudomonas infection of her left lower extremity which previously had necrotizing fasciitis. Yesterday, the patient had debridement of the wound by Dr. Crocker in the operating room. The patient, yesterday appeared to have her mouth and her tongue was seen to be very red so I think that it could be the early onset of Danna mucositis in the mouth. MEDICATIONS: The patient is receiving aztreonam. Also yesterday the patient was started on nystatin to see if it would help the pain she was having in her mouth. This is day 3 of treatment with aztreonam and day 2 of treatment with nystatin. PHYSICAL EXAMINATION: Vital Signs: Temperature is 98.6 degrees, pulse 92, respirations 16, blood pressure 100/61. Generally: A somewhat ill-appearing young female. She is in no acute distress. Head/eyes/ears/nose/throat: She can hear my spoken words and see near objects. She does not have any white coating on her tongue. However, it is hyperemic. Neck: No pain with movement. Lungs: Clear to auscultation. Cardiovascular: Regular heart rate. Abdomen: Soft and nontender. Extremities: The patient's leg had the dressing taken off. There was a large wound that had been debrided yesterday. It had beefy red tissue. There was no purulence and no surrounding erythema of the intact skin. Neurologic: The patient is alert. She can move her extremities. There is no tremor. LAB AND X-RAY: CBC shows a white count of 2710, hemoglobin 9.5, and platelet count 157,000. Creatinine 0.4, GFR is greater than 60. IgG and IgA levels are normal. ASSESSMENT AND PLAN: The patient has a Pseudomonas infected left leg. She will be going home on aztreonam 2 g IV every 8 hours to treat the Pseudomonas infection. I have put in a request for a PICC to be placed as well as a protime and then I put in a consult to Social Service to consult [employer] to supply the patient's aztreonam at home. Also, if the nystatin seems to be helping the patient, I will send her home on Mycelex Troches instead. COMORBIDITIES: Include congestive heart failure, deep venous thrombosis, chronic pain and narcotic use, cirrhosis of the liver, gastric bypass, and Pseudomonas superinfection of the leg that had necrotizing fasciitis. cc: Vinicius Robles MD
[2018-11-26] MEDS: AZACTAM 2 GM in NS 50 ML IV SCH ×2 (12:23→20:01)
--- NOTE | 2018-11-26 17:46 | PROGRESS NOTE ---
DATE: 11/26/2018 INTERVAL HISTORY: The patient is status post surgical debridement of left lower extremity infected wound yesterday. Pain control is still an issue, but fairly well controlled overall on current regimen, although still requiring intermittent Dilaudid. No other new complaints. No acute events overnight. REVIEW OF SYSTEMS: A 12 point review of systems is negative, except as per Interval History. LABORATORIES: WBC is 3.7, hemoglobin 9.5, hematocrit 31.2, platelets are 157. Basic metabolic panel unremarkable. OBJECTIVE: Vitals: Temperature maximum 99.0, pulse 97, respirations 18, blood pressure 104/60, O2 saturation 96% on room air. PHYSICAL EXAMINATION: General: No acute distress. Vitals: As above. HEENT: Normocephalic, atraumatic. Moist mucous membranes. No cervical adenopathy. Cardiovascular: Regular rate and rhythm. No murmurs, rubs, or gallops. Pulmonary: Clear to auscultation bilaterally. No wheezing, rales, or rhonchi. Abdomen: Soft, nontender, nondistended. Bowel sounds positive. Extremities: Peripheral pulses decreased but present. Multiple healed scars on both extremities. Large surgical wound on left lateral lower leg from just below the knee to 3 or 4 inches above the ankle. No surrounding erythema. No purulent drainage. Neurologic: Cranial nerves grossly intact. No focal deficits identified. Psychiatric: Normal mood and affect. Awake, alert, oriented x3. Skin: No new rashes or lesions identified. Large surgical wound as above. ASSESSMENT AND PLAN: 1. Left lower extremity cellulitis and wound infection status post debridement by Dr. Crocker yesterday. Planning on dressing changes. Discussed antibiotics with Dr. Robles. The patient has previous grown out Pseudomonas with only intermediate sensitivity to Levaquin. Therefore, he is recommending ongoing IV antibiotics. We will attempt to arrange a PICC line and home intravenous antibiotics. 2. Acute on chronic pain. Patient with chronic pain on oxycodone 15 q.i.d. p.o. q.6 h. at home. Will likely require more in the short term with her recent excision and large wound. We will use Dilaudid occasionally, but not excessively. Discussed with patient, who simply states that oxycodone works well but wears off before her next dose. We will increase oxycodone to q.4 h. to see if she can get by without the Dilaudid. If the pain can be controlled adequately without IV narcotics and home antibiotics can be arranged, then may be able to discharge home tomorrow. 3. Cirrhosis, elevated liver function tests. No sign of significant decompensation of her cirrhosis. Hepatitis panel negative. LFTs were significantly improved on last check. 4. Oral candidiasis. Continue nystatin suspension. 5. Leukopenia and neutropenia. Patient with mild to moderate neutropenia. Neutropenia could be related to antibiotic, but does appear to be getting better today. As long as this continues to improve, then no further intervention is necessary. 6. Anemia. No signs or symptoms of active bleeding. Actually somewhat improved today. Continue to monitor.
[2018-11-27] MEDS: DILAUDID IV PRN ×7 (02:37→21:41)
[2018-11-27] MEDS: OXY IR PO PRN ×5 (02:38→20:08)
[2018-11-27] MEDS: AZACTAM 2 GM in NS 50 ML IV SCH (03:50)
[2018-11-27 07:55] LABS: AGAP 9; BUN 13 mg/dL (8-22); CALCIUM 7.2 mg/dL (8.8-10.2); CHLORIDE 109 mmol/L (98-107); COSMO 281; CREATININE 0.4 mg/dL (0.5-0.9); ESTIMATED GFR > 60; GLUCOSE 89 mg/dL (70-104); POTASSIUM 3.9 mmol/L (3.5-5.1); SODIUM 141 mmol/L (136-145); TCO2 23 mmol/L (25-35)
[2018-11-27 07:58] LABS: BASO# 0.01 X1000 (0.0-0.2); BASO% 0.3 % (0.0-0.8); EOS# 0.02 X1000 (0.0-0.7); EOS% 0.7 % (0.0-10.0); HEMATOCRIT 31.9 % (37.0-47.0); HEMOGLOBIN 9.6 g/dL (12.0-16.0); LYMPH# 1.33 X1000 (1.2-3.4); LYMPH% 45.5 % (20.5-51.1); MCH 33.6 PG (27-31); MCHC 30.1 g/dL (33-37); MCV 111.5 FL (81-99); MONO# 0.27 X1000 (0.11-0.59); MONO% 9.2 % (1.7-9.3); MPV 10.3 FL (7.4-10.4); NEUT# 1.29 X1000 (1.4-6.5); NEUT% 44.3 % (42.2-75.2); PLT 153 X1000 (130-400); RBC 2.86 XMIL (4.2-5.4); WBC 2.92 X1000 (4.8-10.8)
[2018-11-27 08:38] LABS: LYMPHS 46 % (21-51); MONO 2 % (1-9); SEGS 52 % (42-75)
[2018-11-27] MEDS ORDERED: NS 250 ML ONE (08:42)
[2018-11-27] MEDS: PERIDEX MT SCH ×2 (10:45→20:08)
[2018-11-27] MEDS: XIFAXAN PO SCH ×2 (10:45→20:08)
[2018-11-27] MEDS: ALDACTONE PO SCH (10:46)
[2018-11-27] MEDS: LASIX PO SCH (10:46)
[2018-11-27] MEDS: ELIQUIS PO SCH ×2 (10:46→20:08)
[2018-11-27] MEDS: PROAMATINE PO SCH ×3 (10:47→17:14)
[2018-11-27] MEDS: MYCOSTATIN SUSP PO SCH ×4 (10:47→20:08)
[2018-11-27] MEDS: LOTRIMIN 1% CREAM TOP SCH ×2 (10:47→20:15)
[2018-11-27] MEDS: LYRICA PO SCH ×2 (10:47→20:08)
[2018-11-27] MEDS: CENTRUM TABLET PO SCH (10:47)
[2018-11-27] MEDS: SSD CREAM TOP SCH (12:40)
[2018-11-27] MEDS: AZACTAM 2 GM in NS 100 ML IV SCH ×2 (12:42→20:17)
--- NOTE | 2018-11-27 13:50 | GENERAL SURGERY PROGRESS NOTE ---
DATE: 11/27/2018 SUBJECTIVE: The patient is doing better today. No new complaints. OBJECTIVE: She is afebrile. Vital signs are stable.General: She is awake, alert, and oriented x4. No acute distress. Extremities: The left leg was examined. The wound is clean. No gross pus. I redressed the wound. ASSESSMENT AND PLAN: A 33-year-old female with left nonhealing surgical wound and wound infection with Pseudomonas. She is status post debridement. The wound is doing better. She is being discharged today. She will continue Silvadene dressing changes once a day and antibiotics per Dr. Robles. We are planning future split-thickness skin graft in about 2 to 3 weeks, pending her follow-up visit in my office. cc: Kory Crocker MD
--- NOTE | 2018-11-27 15:58 | INFECTIOUS DISEASE PROGRESS NO ---
DATE: 11/27/2018 PRESENT ILLNESS: The patient is status post debridement of a Pseudomonas infected left lower extremity. Dr. Crocker performed the surgery. MEDICATIONS: The patient is receiving aztreonam, and this is day 4 of treatment with that antibiotic. The patient also is on nystatin swish and swallow for presumed oral candidiasis. PHYSICAL EXAMINATION: Vital Signs: Temperature is 97.3 degrees, pulse 89, respirations 16, blood pressure 93/58. Generally: She is a somewhat ill-appearing young female. She is in no acute distress, however. Head, Eyes, Ears, Nose, and Throat: She can hear my spoken words and see near objects. She does not have any white coating on her tongue. Neck: There is no pain when she moves her head. Lungs: Clear to auscultation. Cardiovascular: Regular heart rate. Abdomen: Soft and nontender. Extremities: The patient's left leg has a dressing around it. The dressing is intact. The patient has a PICC in her left arm. The PICC site is not erythematous or swollen. Neurologic: Patient is alert she can move her extremities. There is no tremor. DIAGNOSTIC STUDIES: There is no new radiographic study. The creatinine 0.4, GFR is greater than 60. CBC shows a white count of 2920, hemoglobin 9.6, and platelet count 153,000. IgG and IgA are normal. ASSESSMENT AND PLAN: 1. Patient has a Pseudomonas infected leg. The plan is to continue aztreonam for [address] Crocker will decide when he will put a skin graft on the patient's leg. 2. The patient will be sent home on Mycelex troches because the nystatin is helping her mouth feel better. COMORBIDITIES: 1. Congestive heart failure. 2. Deep venous thrombosis. 3. Chronic pain and narcotic use. 4. Cirrhosis of the liver. 5. Gastric bypass. 6. Prior history of necrotizing fasciitis of the leg. cc: Vinicius Robles MD
--- NOTE | 2018-11-27 17:50 | PROGRESS NOTE ---
DATE: 11/27/2018 CLINICAL HISTORY: Patient's pain improved with more frequent Percocet. Leg dressed. No acute events overnight. No new complaints. REVIEW OF SYSTEMS: A 12 point review of systems was negative as per Interval History. LABORATORIES: WBC 2.9, hemoglobin 9.6, hematocrit 31.9, platelets 153,000, neutrophil percentage 44.3. Basic metabolic panel unremarkable. VITALS: T-max 99 degrees, pulse 89, respirations 16, blood pressure 93/58, O2 saturation 100% on room air. PHYSICAL EXAMINATION: General: No acute distress. Vitals: As above. HEENT: Normocephalic, atraumatic. Moist mucous membranes. No cervical adenopathy. Cardiovascular: Regular rate and rhythm. No murmurs, rubs, or gallops. Pulmonary: Clear to auscultation bilaterally. No wheezing, rales, or rhonchi. Abdomen: Soft, nontender, nondistended. Bowel sounds positive. Extremities: Peripheral pulses decreased but present. Multiple deep but healed scars on both extremities. Left lateral lower leg surgical wound dressed. Dressing clean, dry, intact. Neurologic: Cranial nerves are grossly intact. No focal deficits identified. Psychiatric: Normal mood and affect. Awake, alert, oriented x3. Skin: No new rashes or lesions identified. Surgical wound as above. ASSESSMENT AND PLAN: 1. Lower extremity cellulitis and wound infection status post debridement by Dr. Crocker 11/25/2018. Dressing changes ongoing. Plan for outpatient IV aztreonam, given Pseudomonas resistant to Levaquin on culture. PICC in place, but having difficulty with setting up her home antibiotics with home health. Anticipate discharge once this can be arranged. 2. Acute on chronic pain. Patient with chronic pain on oxycodone 15 mg q.i.d. q.6 h. at home. Increase to q.4 h., given recent debridement and large wound. Pain control improved with increase in frequency of Percocet. 3. Cirrhosis, stable at this time. 4. Oral candidiasis. Continue nystatin suspension. 5. Leukopenia and neutropenia. The patient with moderate neutropenia, but improving. No need for further intervention at this time. 6. Anemia. No signs or symptoms of active bleeding. This is somewhat improved. Likely anemia of chronic disease. Continue to monitor.
[2018-11-28] MEDS: OXY IR PO PRN ×3 (00:18→11:01)
[2018-11-28] MEDS: DILAUDID IV PRN ×4 (01:08→12:08)
[2018-11-28] MEDS: AZACTAM 2 GM in NS 100 ML IV SCH ×2 (05:13→12:07)
[2018-11-28 07:10] LABS: BASO# 0.03 X1000 (0.0-0.2); BASO% 1.2 % (0.0-0.8); EOS# 0.05 X1000 (0.0-0.7); HEMATOCRIT 28.4 % (37.0-47.0); HEMOGLOBIN 8.7 g/dL (12.0-16.0); LYMPH# 1.13 X1000 (1.2-3.4); LYMPH% 44.8 % (20.5-51.1); MCH 34.1 PG (27-31); MCHC 30.6 g/dL (33-37); MCV 111.4 FL (81-99); MONO# 0.26 X1000 (0.11-0.59); MONO% 10.3 % (1.7-9.3); MPV 9.9 FL (7.4-10.4); NEUT# 1.05 X1000 (1.4-6.5); NEUT% 41.7 % (42.2-75.2); PLT 150 X1000 (130-400); RBC 2.55 XMIL (4.2-5.4); RDW 13.7 % (11.5-14.5); WBC 2.52 X1000 (4.8-10.8)
[2018-11-28 07:27] LABS: ESTIMATED GFR > 60
[2018-11-28 07:28] VITALS: BP 107/61
[2018-11-28 07:34] LABS: AGAP 7; BUN 14 mg/dL (8-22); CHLORIDE 108 mmol/L (98-107); COSMO 279; CREATININE 0.4 mg/dL (0.5-0.9); GLUCOSE 112 mg/dL (70-104); POTASSIUM 3.7 mmol/L (3.5-5.1); SODIUM 139 mmol/L (136-145); TCO2 24 mmol/L (25-35)
[2018-11-28] MEDS: PERIDEX MT SCH (08:30)
[2018-11-28] MEDS: ALDACTONE PO SCH (08:30)
[2018-11-28] MEDS: PROAMATINE PO SCH ×2 (08:30→12:08)
[2018-11-28] MEDS: MYCOSTATIN SUSP PO SCH ×2 (08:30→12:08)
[2018-11-28] MEDS: XIFAXAN PO SCH (08:31)
[2018-11-28] MEDS: LASIX PO SCH (08:31)
[2018-11-28] MEDS: LYRICA PO SCH (08:31)
[2018-11-28] MEDS: ELIQUIS PO SCH (08:31)
[2018-11-28] MEDS: CENTRUM TABLET PO SCH (08:31)
--- NOTE | 2018-11-28 12:12 | GENERAL SURGERY PROGRESS NOTE ---
DATE: 11/28/2018 SUBJECTIVE: The patient is doing better today. No new complaints. OBJECTIVE: Vital Signs: She is afebrile. Vital signs are stable. General: She is awake, alert, oriented x3. No acute distress. Extremities: The left leg is dressed. The dressing is clean and dry. ASSESSMENT AND PLAN: A 33-year-old female with left lower leg wound infection with cellulitis. She is status post debridement. The wound is improving. She will be discharged today with outpatient antibiotics and Silvadene ointment to the wound. She will follow up with me in the clinic. We are planning future skin graft. cc: Kory Crocker MD
--- NOTE | 2018-11-28 13:12 | Extremity Venous Study ---
PROCEDURE NAME: Venous U/S Bilateral Legs - 11/24/2018 REFERRING PHYSICIAN: Dr. Joyner. READING PHYSICIAN: Dr. Kory Crocker. TECHNIQUE: Oliva. INDICATION: Leg swelling and leg infection. There is a history of DVT. INTERPRETATION: The deep and superficial veins of the lower extremities were imaged throughout their course. They are compressible, patent without thrombus. INTERPRETATION: No DVT or SVT of either lower extremity. cc: Kory Crocker MD
--- NOTE | 2018-11-29 20:42 | DISCHARGE SUMMARY ---
ADMISSION DATE: 11/23/2018 DISCHARGE DATE: 11/28/2018 CONSULTS: Surgery; Infectious Disease. PROCEDURES: Large debridement of necrotic left lower extremity wound. DIAGNOSTIC DATA: Abdominal ultrasound: Fatty liver, splenomegaly, no acute findings. Bilateral venous ultrasounds showing no DVT. DISCHARGE DIAGNOSES: 1. Left lower extremity cellulitis and wound infection with necrosis. 2. Fatty liver with cirrhosis. 3. Oral candidiasis. 4. Leukopenia. 5. Anemia. 6. Chronic pain. HOSPITAL COURSE: The patient is a 33-year-old female with recent history of necrotizing fasciitis involving both lower extremities. This was debrided at the end of last year by Dr. Crocker. She did well initially after that, but subsequently had increased drainage, enlarging wound, increased swelling and pain, and low-grade fevers. She came to the ER. On evaluation she was found to have significant infection of the left lower leg wound site. It extended almost the entire length of her lower leg laterally. She was started initially on Azactam and vancomycin. Cultures later grew out pseudomonas, which was intermediate to Levaquin but otherwise sensitive. Surgery was consulted and performed a debridement on 11/25. Subsequently the wound was dressed and did well. Infection cleared. ID was involved for antibiotic recommendations, and recommended aztreonam for 2-3 weeks, depending on response. PICC line was obtained and home intravenous antibiotics were arranged. The patient did have some moderate leukopenia at one point, but this improved and appeared to be resolving at the time of discharge. The patient's other issues were largely stable. She did have increased pain after the debridement, and her home oxycodone was increased to q.4, with improvement. The patient did also have some oral candidiasis, which was treated initially with nystatin. She was discharged on oral clotrimazole as per Infectious Disease recommendations. DISCHARGE VITAL SIGNS: Temperature 98 degrees, pulse 91, respirations 16, blood pressure 107/61, O2 saturation 98% on room air. DISCHARGE DIET: Regular. DISCHARGE MEDICATIONS: Spironolactone 100 mg p.o. daily; Eliquis 2.5 mg p.o. b.i.d.; Lasix 80 mg p.o. daily; Lyrica 100 mg p.o. daily; multivitamin daily; midodrine 5 mg p.o. t.i.d.; rifaximin 550 mg p.o. b.i.d.; aztreonam 2 g IV q.8 hours; clotrimazole 10 mg p.o. t.i.d.; oxycodone 50 mg p.o. q.4 hours as needed; silver sulfadiazine applied daily to wound. FOLLOWUP AND PLAN: Patient discharging home on course of IV antibiotics for pseudomonas wound infection. Patient to follow up with Surgery for likely skin grafting in 1-2 weeks, once we are sure infection is cleared. The patient to return to care immediately if any swelling, erythema, increased drainage or other sign of infection develops in the wound. Greater than 30 minutes spent arranging discharge and counseling patient.
== END 2018-11-28 13:04 | disposition home health service (06) | DRG 857 ==
LOC: ED 21:17 → SUATTDRO 11-23 08:22 → 4N 11-23 08:22
PROVIDERS: ATTEND Internal Medicine
CPT/HCPCS: 36569; 76700; 80048; 80053; 80074; 82784; 83605; 85025; 85610; 85730; 86850; 86900; 86901; 87040; 87070; 87077; 87186; 93970; 94761; 96365; 96366; 96367; 96375; 96376; 99285; A9270; J0610; J1170; J2250; J2550; J3010; J3370; J7040; J7050; S0073

== ENCOUNTER 2019-01-15 20:07 | Inpatient (IN) ==
--- NOTE | 2019-01-15 21:32 | Diag Imaging Result Doc PS360 ---
EXAM: CHEST-2 VIEWS HISTORY: sob TECHNIQUE: Chest two views COMPARISON: 08/13/2018 FINDINGS: Poor inspiratory effort. There is basilar atelectasis. The heart is not enlarged. The vessels are not distended. Questionable small basilar infiltrates. No pleural effusions. IMPRESSION: Poor inspiratory effort with basilar atelectasis. Questionable underlying infiltrates. Electronically signed by Hemant Gonzalez 01/15/2019 9:30 PM
--- NOTE | 2019-01-15 21:57 | PROVIDER DOCUMENTATION ---
HPI-General Adult - General Chief Complaint: Edema Stated Complaint: FLUID RETENTION Time Seen by Provider: 01/15/19 21:50 Source: patient Allergies/Adverse Reactions: Patient Allergies Allergy/AdvReac Type Severity Reaction Status Date / Time cephalexin monohydrate * Allergy ANAPHYLAXIS Verified 12/15/18 09:12 [From Keflex] Penicillins Allergy HIVES Verified 12/15/18 09:12 morphine AdvReac "It does Verified 12/15/18 09:12 not work" per patient. Home Medications: Home Medication List Medication Instructions Recorded Confirmed Last Taken Type Apixaban [Eliquis] 2.5 mg PO BID 06/18/17 12/15/18 12/11/18 20:00 History Midodrine [Proamatine] 5 mg PO TID 06/18/17 12/17/18 12/15/18 10:00 History Pregabalin [Lyrica] 100 mg PO BID 06/18/17 12/17/18 12/03/18 20:00 History Furosemide [Lasix] 80 mg PO DAILY 11/23/18 12/17/18 12/15/18 09:00 History Spironolactone [Aldactone] 100 mg PO DAILY 11/23/18 12/17/18 12/15/18 09:00 History Oxycodone I.r. [Oxy Ir] 15 mg PO Q4H PRN PRN #42 tab 11/27/18 12/17/18 12/17/18 04:30 Rx Silver Sulfadiazine [Silvadene] 1 dose TOP DAILY 12/15/18 12/17/18 12/16/18 20:00 History - History of Present Illness -Gen Adult Nature of Presenting Problems: 33 YOF PRESENTS WITH C/O FVO, GENERALIZED EDEMA AND 40LB WEIGHT GAIN ADN SOB WITH EXERTION . Onset/Duration: reports: unsure Timing: reports: still present Context/Activities at Onset: reports: none Modifying Factors: improves with: nothing Associated Symptoms: reports: trouble walking Similar Symptoms Previously?: Yes Recently seen or treated by another doctor?: Yes Review of Systems - Adult - REVIEW OF SYSTEMS - ADULT Constitutional: reports: no symptoms reported. denies: see HPI, chills, fever, fatique, night sweats, weight gain, weight loss, other Eyes: reports: no symptoms reported. denies: see HPI, discharge, dry eyes, decreased vision, blurred vision, double vision, eye pain, redness, other Ears, Nose, Mouth & Throat: reports: no symptoms reported. denies: see HPI, ear discharge, ear pain, hearing loss, tinnitus, epistaxis, sinus problem, nose pain, loose teeth, mouth/dental pain, mouth swelling, hoarseness, throat pain, throat swelling, other Cardiovascular: reports: edema (GENERALIZED) Respiratory: reports: dyspnea on exertion. denies: no symptoms reported, see HPI, chronic cough, cough, excessive sputum production, hemoptysis, pleurisy, shortness of breath, wheezing, other Gastrointestinal: reports: no symptoms reported. denies: see HPI, abdominal pain, hematemesis, constipation, diarrhea, difficulty swallowing, frequent heartburn, nausea, poor appetite, rectal bleeding, vomiting, other Genitourinary: reports: no symptoms reported. denies: see HPI, dysuria, discharge, frequency, flank pain, frequent UTI's, hematuria, hesitency, incontinence, urinary retention, urgency, other Musculoskeletal: reports: no symptoms reported. denies: see HPI, bone pain, back pain, frequent leg cramps, joint pain, joint swelling, muscle aches, muscle weakness, neck pain, other Integumentary: reports: other (WOUND TO LLE). denies: no symptoms reported, see HPI, hives, hair loss, itching, mole changes, nail changes, rash, skin sores/ulcer, skin thickening Neurological: reports: no symptoms reported. denies: see HPI, ataxia, dizziness/vertigo, headache/migraines, loss of balance, numbness, paresthesia, seizure, slurred speech, syncope, tremors, other Psychiatric: reports: no symptoms reported. denies: see HPI, anxiety, anti- depressant use, alcohol/drug dependence, depression, emotional problems, insomnia, panic attacks, suicidal thoughts, other Endocrine: reports: no symptoms reported. denies: see HPI, change in skin pigment, excessive sweating, goiter, cold intolerance, heat intolerance, increased hunger, increased thirst, polyuria, other Hematologic/Lymphatic: reports: no symptoms reported. denies: see HPI, blood clots, easy bruising, low blood count, lymphedema, prolonged bleeding, swollen lymph nodes, transfusions, other Allergic/Immunologic: reports: no symptoms reported. denies: see HPI, allergic reactions, allergic rhinitis, asthma, eczema, food allergy, frequent infections, hay fever, hives, positive PPD, urticaria, other Past History - Adult - PAST MEDICAL HISTORY-ADULT Review of Records: reports: Nursing Assessment Review, Social history reviewed & non-contributory. Major Childhood Illnesses: reports: denies history Cardiovascular: reports: blood clots, CHF (post ), pericardial disease (effusion) Respiratory: reports: denies history Gastrointestinal: reports: liver disease (post ), other (anasarca) Obstetrical/Gynecological: reports: denies history Genitourinary: reports: denies history Musculoskeletal: reports: other (disc disease ) Neurological: reports: denies history Psychiatric: reports: anxiety, depression Endocrine/Immune: reports: denies history Other Conditions: reports: denies history - PRIOR SURGERIES/PROCEDURES Surgical/Procedure History: reports: tonsillectomy, other, cholecystectomy, gastric bypass - IMMUNIZATION STATUS Childhood Immunizations: See Nurse Assessment Flu Vaccine: See Nurse Assessment - FAMILY HISTORY Family History: reviewed, not pertinent Physical Exam-General - PHYSICAL EXAM-ADULT Initial Vital Signs Reviewed: Yes - CONSTITUTIONAL General Appearance: appears well, alert, no apparent distress - EYES Eyes: PERRL/EOMI - HEAD, EARS, NOSE, MOUTH & THROAT HENMT: normocephalic/atraumatic, moist mucous membranes, normal ENT inspection - NECK Neck: non-tender, full range of motion, supple - RESPIRATORY Respiratory: chest non-tender, lungs clear, normal breath sounds, no pleuratic chest pain, no respiratory distress, no accessory muscle use - CARDIOVASCULAR Cardiovascular: normal peripheral pulses, regular rate, rhythm, JVD, other (GENERALIZED PITTING EDEMA). negative: no edema, no JVD - GASTROINTESTINAL (ABDOMEN) Abdominal Exam: normal bowel sounds, soft, distended - LYMPHATIC Lymphatic: no adenopathy - MUSCULOSKELETAL Back Exam: normal inspection, no CVA tenderness, no vertebral tenderness Extremity: normal range of motion, non-tender, normal gait, normal inspection - SKIN Integumentary: normal color, swelling (GENERALIZED), other (WOUND TO LLE FROM FAILED SKIN GRAFT S/P DEBRIDEMENT) - NEUROLOGIC Neurologic: grossly normal - PSYCHIATRIC Psych/Mental Status: normal mood/affect, oriented x 3 Progress - PLAN OF CARE/RESULTS Progress/Plan/Lab Results: Vital Signs - 8 hr 05/30/19 20:28 Temperature 97.8 F Pulse Rate 93 H Respiratory Rate 20 Blood Pressure 101/67 O2 Sat by Pulse Oximetry 100 Orders Category Date Time Status Cardiac Monitoring DIRECTED Care 01/15/19 21:08 Active Oxygen Therapy- ED Nursing DIRECTED Care 01/15/19 21:08 Active Saline Loc NOW Care 01/15/19 21:08 Active CHEST-2 VIEWS [RAD] Stat Exams 01/15/19 21:08 Completed CBC WITH ELECTRONIC DIFF [HEME] Stat Lab 01/15/19 21:08 Uncollected CK PROFILE [SP CHEM] Stat Lab 01/15/19 21:08 Uncollected COMPREHENSIVE METABOLIC PANEL [CHEM] Stat Lab 01/15/19 21:08 Uncollected PRO B-NATRIURETIC PEPTIDE Stat Lab 01/15/19 21:08 Uncollected PROTIME WITH INR [COAG] Stat Lab 01/15/19 21:08 Uncollected PTT [COAG] Stat Lab 01/15/19 21:08 Uncollected TROPONIN T Stat Lab 01/15/19 21:08 Uncollected CP/SOB/Palp >45 yrs of Age Stat Oth 01/15/19 21:08 Ordered EKG [EKG] Stat Ther 01/15/19 20:16 Ordered Result Diagrams: 01/15/19 22:40 01/15/19 22:40 - REASSESSMENT Reassessment #1 Time Reassessed: 00:20 (CORRECTED CA BASED ON ALBUMIN 8.6) Status: unchanged - XRAY 1 XRAY Study: Chest Impression: See EMR Report (FINDINGS: Poor inspiratory effort. There is basilar atelectasis. The heart is not enlarged. The vessels are not distended. Questionable small basilar infiltrates. No pleural effusions. IMPRESSION: Poor inspiratory effort with basilar atelectasis. Questionable underlying infiltrates.) - CONSULTS/PCP/HOSPITALIST Notification #1 *Consult/PCP/Hospitalist*: DR. ALAN Time Discussed: 01:05 Consult Disposition: Admit Departure - Departure Date of Disposition Decision: 01/16/19 Time of Disposition Decision: 01:05 DIAGNOSIS: Edema, Fluid volume excess, Shortness of breath on exertion Disposition: ADMITTED INPATIENT 09 Certified Medical Emergency: Emergent Condition: Stable Additional Freetext Instructions: ED Follow Up Instructions: You have been treated by a care provider in the Emergency Department. These instructions are being provided to you so you can have an understanding of how to care for yourself upon discharge. Upon discharge from the Emergency Department, you are responsible for making arrangements for follow-up care by a physician of your choice. Take all prescribed medications as directed. Return to the Emergency Department immediately for any new or worsening symptoms. You may call the Physician Referral phone number at [phone] to obtain a list of Physicians who are taking new patients. Referrals and Follow-Ups: Loree Berman MD [Primary Care Provider] - - Critical Care Note This patient required my direct & personal management of CC.: No Attestation - Physician/ TONY Attestation Patient care was provided by Advanced Practice Provider:: Yes Advanced Practice Provider:: Mecca Griffiths Advanced Practice Provider documentation review:: The Mid-level provider documentation, treatment plan and medical decision making was reviewed by the physician who agrees with all treatment and medical decision making by the MLP. The physician spent face to face time with patient:: No Advanced Practice Provider documentation review:: Supervising physician onsite and consulted in the evaluation and care of this patient. The physician did not have a face to face encounter with the patient.
[2019-01-15 23:06] LABS: INR 1.17; PROTIME 15.8 Seconds (11.0-16.0)
[2019-01-15 23:07] LABS: PTT 37.8 Seconds (22.3-41.8)
[2019-01-15 23:10] LABS: BASO# 0.02 X1000 (0.0-0.2); BASO% 0.5 % (0.0-0.8); EOS# 0.06 X1000 (0.0-0.7); EOS% 1.5 % (0.0-10.0); HEMATOCRIT 27.3 % (37.0-47.0); HEMOGLOBIN 8.5 g/dL (12.0-16.0); IMM GRAN# 0.02 X1000 (0.0-0.04); IMM GRAN% 0.5 % (0.0-0.5); LYMPH% 32.2 % (20.5-51.1); MCH 30.6 PG (27-31); MCHC 31.1 g/dL (33-37); MCV 98.2 FL (81-99); MONO# 0.25 X1000 (0.11-0.59); MONO% 6.2 % (1.7-9.3); MPV 9.8 FL (7.4-10.4); NEUT# 2.39 X1000 (1.4-6.5); NEUT% 59.1 % (42.2-75.2); PLT 184 X1000 (130-400); RBC 2.78 XMIL (4.2-5.4); WBC 4.04 X1000 (4.8-10.8)
[2019-01-15 23:54] LABS: ALB/GLOB RATIO 0.8; ALBUMIN 1.9 g/dL (3.5-5.0); ALKALINE PHOSPHATASE 155 U/L (32-104); BUN 13 mg/dL (8-22); CK PROFILE 25 U/L (24-173); CREATININE 0.5 mg/dL (0.5-0.9); ESTIMATED GFR > 60; GLUCOSE 125 mg/dL (70-104); GOT 26 U/L (10-30); GPT 24 U/L (10-36); TCO2 18 mmol/L (25-35); TOTAL BILIRUBIN 0.28 mg/dL (0.20-1.00); TOTAL PROTEIN 4.3 g/dL (6.3-8.3)
[2019-01-16 00:01] LABS: CHLORIDE 117 mmol/L (98-107); POTASSIUM 3.6 mmol/L (3.5-5.1); SODIUM 145 mmol/L (136-145)
[2019-01-16 00:12] LABS: AGAP 1; COSMO 290
[2019-01-16 00:13] LABS: CALCIUM 6.9 mg/dL (8.8-10.2)
[2019-01-16] MEDS ORDERED: TORADOL IV ONE (02:09)
[2019-01-16] MEDS: OXY IR PO PRN ×5 (05:20→22:28)
[2019-01-16] MEDS: LASIX IV SCH ×2 (05:20→16:37)
--- NOTE | 2019-01-16 06:45 | EKG Report ---
Test Performed on : 01/15/2019 8:21:28 PM Test Reason : sob Blood Pressure : / mmHG Vent. Rate : 091 BPM Atrial Rate : 091 BPM P-R Int : 158 ms QRS Dur : 080 ms QT Int : 362 ms P-R-T Axes : 026 -15 075 degrees QTc Int : 445 ms Normal sinus rhythm. Cannot rule out Inferior infarct , age undetermined Possible Anterolateral infarct , age undetermined Abnormal ECG When compared with ECG of 02-AUG-2018 09:26, Borderline criteria for Anterior infarct are now present Borderline criteria for Anterolateral infarct are now present No significant change was found Unconfirmed Result
[2019-01-16] MEDS: ALDACTONE PO SCH (08:37)
[2019-01-16] MEDS: LYRICA PO SCH ×2 (08:37→22:27)
[2019-01-16] MEDS: DILAUDID IV PRN ×2 (08:38→16:36)
[2019-01-16] MEDS: PROTONIX PO SCH (08:38)
[2019-01-16] MEDS: ELIQUIS PO SCH ×2 (08:38→22:28)
[2019-01-16] MEDS ORDERED: CALCIUM GLUCONATE 1 GM in NS 50 ML IV ONE (08:57)
[2019-01-16] MEDS ORDERED: PROAMATINE PO SCH (09:00)
--- NOTE | 2019-01-16 09:35 | Diag Imaging Result Doc PS360 ---
EXAM: US ABDOMEN-COMPLETE 01/16/2019 HISTORY: cirrhosis of the liver TECHNIQUE: Abdominal ultrasound COMMENT: The liver is hyperechoic and nodular in contour. There is ascites. There is antegrade flow in the portal vein. There is no evidence of biliary dilatation the common bile duct measuring less than 7 mm. The spleen is enlarged measuring over 16 cm in AP dimension. The kidneys are without evidence of hydronephrosis. There is a 3.6 cm cyst in the upper pole the right kidney. The visualized portions of the aorta and inferior vena cava are normal in caliber. The head of the pancreas is unremarkable the remainder is obscured. The gallbladder is surgically absent. IMPRESSION: Cirrhosis with ascites. Splenomegaly. Electronically signed by Corby Ortiz 01/16/2019 9:33 AM
--- NOTE | 2019-01-16 09:46 | HISTORY AND PHYSICAL ---
CHIEF COMPLAINT: Shortness of breath for over 5 days. HISTORY OF PRESENT ILLNESS: Ms. Belkis Hurtado is a 33-year-old female, who has a history of necrotizing fasciitis in both lower extremities, liver cirrhosis, congestive heart failure, and DVT of the right lower extremity on Eliquis. She was recently in [facility] and was there for about 1 week. During that hospitalization, she was treated for colitis with IV antibiotics. According to patient, she was discharged on 01/12/2019. The patient indicates that in the last couple of days she has gained about 50 pounds. She takes Lasix as well as Aldactone. She is dyspneic even with slight activity. She does have a paroxysmal nocturnal dyspnea as well as orthopnea. The patient was seen and evaluated in the ER. ProBNP level is 687. X-ray of the chest showed a poor inspiratory effort with basilar atelectasis, and also questionable underlying infiltrates. The patient will now be admitted now to the floor for further management. PAST MEDICAL HISTORY: 1. Necrotizing fascitis in both lower extremities. She also has left lower extremity wound. 2. History of liver cirrhosis. 3. History of congestive heart failure. 4. History of kidney disease. 5. History of degenerative joint disease. 6. History of DVT right lower extremity. PAST SURGICAL HISTORY: She has had extensive debridement right lower extremity with skin graft, recent debridement left lower extremity, cholecystectomy, section and tubal ligation. Gastric bypass. Tonsillectomy. SOCIAL HISTORY: No history of cigarette smoking. No alcohol or drug use. FAMILY HISTORY: Positive for diabetes mellitus. ALLERGIES: She is allergic to penicillin, morphine and Cephalexin. MEDICATIONS: 1. Apixaban 2.5 mg p.o. twice a day. 2. Midodrine 5 mg p.o. 3 times a day. 3. Lyrica 100 mg p.o. twice a day. 4. Lasix 80 mg p.o. daily. 5. Spironolactone 100 mg p.o. daily. 6. Oxy-IR 15 mg every 4 hours p.r.n. 7. Silvadene cream. REVIEW OF SYSTEMS: Constitutional: No fevers. [employer]: Has headaches. HEENT: Eyes: Blurred vision. ENT: No sinus problems. No hearing problems. Cardiovascular: No chest pain. She has palpitations. GI: She has nausea, no vomiting. Diarrhea. No constipation. Musculoskeletal: She has joint pains. Psychiatric: She has anxiety with depression. Hematology: She does have scarring in the right lower extremity from necrotizing fasciitis. She does have a wound on the left lower extremity on the lateral side. Endocrinology: No thyroid disease or diabetes. PHYSICAL EXAMINATION: VITAL SIGNS: Temperature 97.8 degrees, pulse 93, respirations 20, blood pressure 101/67, and oxygen saturation 100%. HEENT: Atraumatic, normocephalic. She is anicteric. Extraocular movements are intact. No oral lesions noted. NECK: No lymphadenopathy or thyromegaly. CARDIOVASCULAR: S1, S2. RESPIRATORY: There is evidence of good air entry bilaterally. ABDOMEN: She is obese. Soft. Nontender. No masses felt. EXTREMITIES: She had extensive scarring right lower extremities. No obvious wounds noted. On the left lower extremity, She has a wound on the lateral aspect of the left leg which is currently dressed. CENTRAL NERVOUS SYSTEM: No obvious focal deficit noted. LABORATORY: WBCs 4.04, hematocrit 27.3 with a platelet count of 184,000. INR is 1.17. Sodium is 145, potassium 3.6, chloride 117, bicarb is 18, BUN is 13, and creatinine 0.5. Calcium 6.9. ProBNP is 687. Alkaline phosphatase 55. Albumin is 1.9. Total protein is 4.3. ASSESSMENT AND PLAN: This is a 33-year-old female who presented to hospital because of dyspnea with slight exertion. She describes about 50 pound weight gain in the last couple of days. ProBNP is slightly elevated at 687. X-ray of the chest shows basilar atelectasis as well as questionable underlying infiltrate. 1. Generalized edema probably multifactorial including congestive heart failure as well as decompensated liver disease. The patient will be placed on diuretics which will be given intravenously. We will need to monitor intakes and outputs, as well as daily weights, and also closely follow up on her renal function. We will get a 2D echo of the heart to assess the patient's current ejection fraction. We will also obtain hepatitis panel along with an abdominal ultrasound. 2. Left lower extremity cellulitis/wound from history of necrotizing fasciitis. The patient will require local wound care. 3. Anemia. Check iron studies along with B12 and also folate level. Stool for occult blood. 4. Hypocalcemia. Check ionized calcium. Also check phosphorus level as well as a 25-hydroxy vitamin D level with intact PTH level. 5. Hypoalbuminemia. Suspect may be related to malnutrition as well as chronic liver disease. 6. Deep vein thrombosis prophylaxis. Patient is on Eliquis. 7. Gastrointestinal prophylaxis. PPI. 8. DVT right lower extremity. continue Eliquis cc: Remigio Castro MD MTDD
[2019-01-16 10:42] LABS: HEMATOCRIT 32.2 % (37.0-47.0); MCH 30.8 PG (27-31); MCHC 31.1 g/dL (33-37); MCV 99.1 FL (81-99); MPV 9.8 FL (7.4-10.4); RBC 3.25 XMIL (4.2-5.4); RDW 13.4 % (11.5-14.5); WBC 5.22 X1000 (4.8-10.8)
[2019-01-16] MEDS: SSD CREAM TOP SCH (10:55)
[2019-01-16] MEDS: ALBUMIN 25% IV SCH (10:55)
[2019-01-16 11:01] LABS: MAGNESIUM 1.7 mg/dL (1.5-2.7); PHOSPHORUS 2.8 mg/dL (2.7-4.5)
[2019-01-16 11:03] LABS: AGAP 12; ALB/GLOB RATIO 0.7; ALBUMIN 2.1 g/dL (3.5-5.0); ALKALINE PHOSPHATASE 175 U/L (32-104); BUN 12 mg/dL (8-22); CALCIUM 7.3 mg/dL (8.8-10.2); CHLORIDE 114 mmol/L (98-107); COSMO 287; CREATININE 0.4 mg/dL (0.5-0.9); ESTIMATED GFR > 60; GLUCOSE 78 mg/dL (70-104); GOT 32 U/L (10-30); GPT 27 U/L (10-36); POTASSIUM 3.5 mmol/L (3.5-5.1); SODIUM 145 mmol/L (136-145); TCO2 19 mmol/L (25-35); TOTAL BILIRUBIN 0.45 mg/dL (0.20-1.00); TOTAL PROTEIN 5.3 g/dL (6.3-8.3)
[2019-01-16] MEDS ORDERED: KLOR-CON PO ONE (11:10)
[2019-01-16] MEDS ORDERED: MAGNESIUM SULFATE 2 GM/S.W.I. 2 GM/50 ML IVPB IV ONE (11:11)
--- NOTE | 2019-01-16 14:38 | Diag Imaging Result Doc PS360 ---
EXAM: CT THORAX W/O CONTRAST HISTORY: pneumonia TECHNIQUE: CT chest without contrast COMPARISON: 02/03/2017 FINDINGS: there are small bilateral pleural effusions measuring less than 1.5 cm posteriorly and inferiorly in the midline. Heart is mildly enlarged. No thoracic aortic aneurysm. There are calcified mediastinal and right hilar lymph nodes with scattered granuloma. There are lower lobe infiltrates with atelectasis. Small infiltrates anteriorly in the right upper lobe. Limited images through the upper abdomen reveal hepatosplenomegaly with at least a small amount of abdominal ascites and evidence of a prior gastric bypass procedure. IMPRESSION: 1.Cardiomegaly with small pleural effusions 2.Multifocal infiltrates with basilar atelectasis 3.Hepatosplenomegaly with at least a small amount of abdominal ascites This exam was performed using automated exposure control, adjustment of mA or kV according to patient size, and/or use of iterative reconstruction technique. Electronically signed by Hemant Gonzalez 01/16/2019 2:35 PM
--- NOTE | 2019-01-16 14:42 | ECHO REPORT ---
ORDER DATE: 01/16/2019 INDICATIONS: Congestive heart failure. FINDINGS: 1. The right atrium appears normal in size. 2. Trace tricuspid regurgitation. RV systolic pressure 23. 3. Normal RV size and systolic function. 4. No significant pulmonic insufficiency. 5. Normal left atrial size with a dimension of 3.2 cm. 6. No mitral valve prolapse. I do not see any clear evidence of significant mitral regurgitation. 7. Normal LV size, end-diastolic dimension of 4.8. Normal wall thicknesses with a posterior and interventricular septal wall thickness of 0.6 cm each. Normal LV systolic function. Estimated EF of 70% with normal wall motion. 8. Aortic valve opens well. It is trileaflet. No evidence of stenosis or insufficiency. 9. Aorta appears normal in visualized segments. 10. There appears to be a large pleural effusion present. No obvious pericardial effusion seen. cc: MD Remigio Marsh MD
[2019-01-16] MEDS ORDERED: VITAMIN D PO SCH (14:45)
[2019-01-16] MEDS: PROAMATINE PO SCH ×2 (16:37→22:27)
[2019-01-16] MEDS: AZACTAM 1 GM in NS 50 ML IV SCH (17:46)
--- NOTE | 2019-01-16 18:43 | CONSULTATION ---
DATE OF CONSULTATION: 01/16/2019 IMPRESSION: 1. Edema probably related to hypoalbuminemia which is severe and related to malnutrition. 2. Recent necrotizing fasciitis of both lower extremities. Patient is status post recent extended hospitalization at [facility]. She continues to make slow progress with recovery and wound healing. 3. Deep vein thrombosis right lower extremity for which patient is on anticoagulation. 4. History of liver disease in the past. Previous imaging studies suggested fatty liver disease. 5. Obesity. Patient is status post previous bariatric surgery. RECOMMENDATIONS: 1. Repeat limited echocardiography for followup left ventricular function. 2. Nutrition consult to try and aggressively managed patient's malnutrition. 3. Cautious use of diuretics. Patient's volume excess is predominantly extravascular. HISTORY: This 33-year-old white female with past history of obesity, previous bariatric surgery, chronic liver disease probably due to fatty liver disease, and more recent necrotizing fasciitis of both lower extremities requiring hospitalization was admitted with increasing edema. She was just recently hospitalized at [facility] for necrotizing fasciitis of both lower extremities. She was treated aggressively with debridement and parental antibiotics. She was discharged on 01/12/2019. Over the next few days she started gaining weight and becoming more edematous. She has had nutrition consults and has been encouraged strongly to increase protein intake. However is not clear whether she maintains adequate calorie intake given her history of previous bariatric surgery and associated early satiety. Previous echocardiography 5 months ago indicated normal left ventricular function and no significant valvular abnormality. PAST MEDICAL HISTORY: 1. Obesity. 2. Chronic liver disease probably due to fatty liver disease. 3. Recent DVT right lower extremity. 4. Malnutrition. 5. Recent necrotizing fasciitis of both lower extremities requiring hospitalization in [facility] and aggressive debridement and parental antibiotics. PAST SURGICAL HISTORY: Also includes previous bariatric surgery, cholecystectomy, section, tubal ligation and tonsillectomy. ALLERGIES: She is allergic or intolerant to penicillin, morphine and Keflex. MEDICATIONS PRIOR TO ADMISSION: As listed. SOCIAL HISTORY: She lives at home. She does not work. She does not smoke or use alcohol. FAMILY HISTORY: Negative for premature coronary disease. REVIEW OF SYSTEMS: Pulmonary: Noncontributory beyond history present illness. Gastrointestinal: Noncontributory beyond history present illness. Constitutional: Noncontributory beyond history of present illness. Remainder review of systems noncontributory beyond history present illness with 14 total systems reviewed. PHYSICAL EXAMINATION: General: This is a obese adult white female in no distress on room air. Vital signs: Blood pressure 102/55, heart rate 60 and regular, oxygen saturation 100% on room air. HEENT: Extraocular movements appear intact. Mucous membranes moist. Neck: Supple without jugular venous distention. Chest: Clear to auscultation bilaterally. Cardiac Exam: Reveals a regular rate and rhythm without appreciable murmur or gallop. Abdomen: Soft. Bowel sounds are normal. Extremities: Demonstrate mild to moderate edema. The distal left lower extremity has bandaged wound. Neurologic: Reveals her to be alert and fully oriented. Speech is fluent. She moves all 4 extremities equally well. Skin: Warm, dry. Psychiatric: Reveals her mood to be appropriate. LABORATORY DATA: Includes a sodium 145, potassium 3.5, chloride 114, carbon dioxide 19, BUN 12, creatinine 0.4, glucose 78. White blood cell count 5.22, hematocrit 32.2, hemoglobin 10.0, platelet count 228,000. Twelve lead EKG obtained on admission demonstrates normal sinus rhythm and low voltage QRS and anterolateral precordial leads. cc: MD Remigio Zheng MD
[2019-01-16] MEDS: ZITHROMAX 500 MG/NS 500 MG/250 ML IVPB IV SCH (19:11)
[2019-01-17] MEDS: DILAUDID IV PRN ×4 (00:29→23:46)
[2019-01-17] MEDS: AZACTAM 1 GM in NS 50 ML IV SCH ×4 (00:29→23:14)
[2019-01-17] MEDS: OXY IR PO PRN ×6 (04:52→23:46)
[2019-01-17] MEDS: LASIX IV SCH ×2 (04:53→16:03)
[2019-01-17] MEDS: PROTONIX PO SCH (06:30)
[2019-01-17 07:17] LABS: HEMATOCRIT 29.4 % (37.0-47.0); MCH 31.6 PG (27-31); MCHC 30.6 g/dL (33-37); MCV 103.2 FL (81-99); MPV 9.8 FL (7.4-10.4); RBC 2.85 XMIL (4.2-5.4); RDW 13.6 % (11.5-14.5); WBC 3.86 X1000 (4.8-10.8)
[2019-01-17] MEDS ORDERED: MAGNESIUM SULFATE 2 GM/S.W.I. 2 GM/50 ML IVPB IV ONE (07:34)
[2019-01-17 07:37] LABS: AGAP 14; BUN 9 mg/dL (8-22); CALCIUM 7.7 mg/dL (8.8-10.2); CHLORIDE 111 mmol/L (98-107); COSMO 285; CREATININE 0.5 mg/dL (0.5-0.9); ESTIMATED GFR > 60; GLUCOSE 95 mg/dL (70-104); POTASSIUM 3.8 mmol/L (3.5-5.1); SODIUM 144 mmol/L (136-145); TCO2 19 mmol/L (25-35)
[2019-01-17 07:41] LABS: IRON SATURATION 40 %; TIBC 92 ug/dL; TOTAL IRON 37 ug/dL (49-151); UNBOUND IRON 55 ug/dL (112-346)
[2019-01-17 07:50] LABS: HEMOGLOBIN A1C 4.1 % (4.8-6.0)
[2019-01-17 07:53] LABS: FERRITIN 460 ng/mL (13-150)
[2019-01-17] MEDS: PROAMATINE PO SCH ×3 (09:40→20:09)
[2019-01-17] MEDS: ALDACTONE PO SCH (09:40)
[2019-01-17] MEDS: LYRICA PO SCH ×2 (09:41→20:09)
[2019-01-17] MEDS: ELIQUIS PO SCH ×2 (09:41→20:08)
[2019-01-17] MEDS: SSD CREAM TOP SCH (09:43)
[2019-01-17] MEDS: ALBUMIN 25% IV SCH (12:15)
[2019-01-17] MEDS: ZITHROMAX 500 MG/NS 500 MG/250 ML IVPB IV SCH (17:02)
--- NOTE | 2019-01-17 20:17 | PROGRESS NOTE ---
DATE: 01/17/2019 SUBJECTIVE: The patient is resting comfortably. She states that she feels a little bit better. OBJECTIVE: Vital Signs: Temperature 98.6, blood pressure 101/55, heart rate 89, respirations 20, O2 saturation 98% on room air. General: This is a young female, lying in bed, in no acute distress. Heart: S1, S2. Normal rate and rhythm. Lungs: Equal air entry bilaterally. No crackles. No rales. Abdomen: Positive bowel sounds. Soft, nontender, nondistended. Extremities: 3+ edema with chronic healing wounds on both lower extremities. Neurologic: The patient is alert and oriented x3. LAB: Hemoglobin 9, hematocrit 29, platelets 193. Sodium 144, potassium 3.8, chloride 111, BUN 9, creatinine 0.5, magnesium 1.7. ASSESSMENT AND PLAN: 1. Pneumonia. We will continue with antibiotic therapy and bronchodilator therapy. 2. Liver cirrhosis. Aware. Gastroenterology has been consulted. 3. Severe protein calorie malnutrition, status post gastric bypass. The dietitian has been consulted. The patient is requesting possible initiation of total parenteral nutrition. We will defer to Gastroenterology. 4. History of necrotizing fasciitis in both lower extremities. Stable. 5. Right lower extremity deep vein thrombosis. Continue on Eliquis. 6. Chronic diastolic congestive heart failure. The patient is currently on diuretic therapy. 7. Vitamin D deficiency. Continue vitamin D replacement. cc: MD Remigio Arias MD MTDD
--- NOTE | 2019-01-17 21:58 | GASTROENTEROLOGY CONSULTATION ---
DATE: 01/17/2019 REFERRING PHYSICIAN: Perlita Collier MD. PRIMARY CARE PHYSICIAN: Loree Berman MD. REASON FOR CONSULTATION: Question of liver cirrhosis. HISTORY OF PRESENT ILLNESS: Ms. Vidal is a 33-year-old female who was admitted on 01/16/2019 for shortness of breath for the last 5 days. The patient has a history of cardiomyopathy since her last , when she delivered twins. Since that time, she has had chronic congestive heart failure. She has had multiple admissions. She is followed by Dr. Wilder in Cardiology at [facility]. She was recently in the hospital for about a week and was discharged. She also has a history of chronic lower extremity edema and necrotizing fasciitis in the lower extremities which have been treated with extensive debridement and skin grafting by our surgical group. She has also seen Dr. Jimenez for possible liver cirrhosis. She denies any family history of liver problems. She has no history of alcohol abuse. We will try to obtain the records from [facility] from her prior workup. She was admitted with shortness of breath. She was diagnosed with congestive heart failure. During part of the workup she was noted to be anemic and hypoalbuminemic with mild elevation of liver enzymes with an AST of 32 and alkaline phosphatase 175. ALT was normal at 27. Gastroenterology was consulted for further management. PAST MEDICAL HISTORY: 1. Necrotizing fasciitis in both lower extremities. She also has a left lower extremity wound. 2. History of congestive heart failure. Question of cardiomyopathy since her last . 3. History of kidney disease. 4. History of degenerative joint disease. 5. History of DVT in the right lower extremity. 6. Question of liver cirrhosis. PAST SURGICAL HISTORY: Extensive debridement of the right lower extremity with skin graft, recent involvement of the left lower extremity, cholecystectomy, section, tubal ligation, gastric bypass, tonsillectomy. SOCIAL HISTORY: No history of cigarette smoking. No history of alcohol abuse or drug abuse. She has twins that are age 3. The kids are being watched by her mother. FAMILY HISTORY: Positive for diabetes mellitus. ALLERGIES: Penicillin, morphine and cephalexin. MEDICATIONS IN THE HOSPITAL: Include albumin 50 g IV daily, Eliquis 2.5 mg p.o. b.i.d., aztreonam IV every 8 hours, vitamin D every 7 days, Lasix twice daily 40 mg, Dilaudid, midodrine, oxycodone instant release, Protonix p.o. once daily, Lyrica 100 mg p.o. b.i.d., silver sulfadiazine cream topical daily, Aldactone 100 mg p.o. daily, azithromycin 500 mg IV once daily. She is on Ensure and a heart-healthy diet. REVIEW OF SYSTEMS: Denies any fevers, rigors, chills. Complains of shortness of breath and proximal nocturnal dyspnea. She has history of congestive heart failure and cardiomyopathy since . She complains of feeling weak. She denies any vomiting blood or passing blood in the stools. She has a history of chronic lower extremity wounds from necrotizing fasciitis. Denies any neurologic complaints. PHYSICAL EXAMINATION: Vital signs: Temperature of 98.5 degrees, pulse rate of 89, respiratory rate of 16, blood pressure 95/52, saturating 98% on room air. Body weight of 213 pounds, 1.6 ounces. BMI of 35.5 kg/m2. General: Obese, lying in bed in no acute distress. HEENT: Pale conjunctivae. No icterus. Pupils equal and reactive to light. Neck: Supple. Abdomen: Obese. No guarding. No rebound. Positive anasarca. Extremities: Chronic lower extremity swelling noted. She has a scar chapin from prior surgery in the right lower extremity. Has a wound in the left lower extremity. Neurologic: She is alert, awake, oriented. LABS: Hemoglobin and hematocrit are 9 and 29.4, white count 3.86, platelet count 193. Sodium is 144, potassium 3.8, chloride 111, bicarb 19, anion gap of 14, BUN of 9, creatinine 0.5, glucose of 95. Calcium is 7.7, magnesium 1.7. Iron percent saturation of 40%. Iron level 37, ferritin level of 460. Total bilirubin is 0.45, AST 32, ALT 27, alkaline phosphatase 135. Total protein is 5.3, albumin of 2.1. Vitamin D level is low at 5.2. Vitamin B12 is 1238. Folate of 14. TSH is 5.5, PTH is 76. Blood cultures x2 were drawn yesterday. They are currently pending. Stool for occult blood was negative x2. CT of the chest was done. Showed cardiomegaly with small pleural effusions. Multifocal infiltrates with basilar atelectasis. Hepatosplenomegaly with at least small abdominal ascites. She had an abdominal ultrasound done which showed her liver is hyperechoic and nodular in contour. There is ascites. There is antegrade flow in the portal vein. There is no evidence of biliary dilation of the common bile duct, and common bile duct measures less than 7 mm. The spleen measures 16 cm. There is a 3.6 cm cyst in the upper pole of the right kidney. The gallbladder is surgically absent. Echocardiogram was done and showed EF of 70%. Large pleural effusion present. No obvious pericardial effusion was seen. IMPRESSION AND PLAN: 1. Question of liver cirrhosis. Could be secondary to non-alcoholic steatohepatitis. The patient had obesity, and she is status post gastric bypass. 2. Malnutrition. Low albumin. 3. Status post gastric bypass. 4. An history of necrotizing fascia on both lower extremities. 5. Congestive heart failure. RECOMMENDATIONS: 1. We will encourage improved oral intake. Will continue with Ensure and a heart-healthy diet. She needs to have less than 2 grams of sodium in 24 hours. 2. We will follow up on the chronic liver disease workup. We will follow up on the hepatitis panel and MONCHO. We will keep her on GI prophylaxis with Protonix once daily. The patient is anemic, so we will start on iron C twice daily. She may benefit from IV iron infusion. This can be done by the primary team. 3. She will continue on Lasix 40 mg IV b.i.d. and Aldactone 100 mg once daily, but we need to keep an close eye on her creatinine. 4. She will continue to follow with the precise winder to evaluate for any evidence of cardiomyopathy related to her , as according to the patient, all her symptoms stemmed after the delivery of her twins, which were delivered 3 years ago. 5. Cardiomegaly with small pleural effusions and multifocal infiltrates on imaging. This is being managed by primary team. 6. The above plans were discussed with the patient, and all questions answered. We will follow along. Please call us with any further questions. cc: MD Remigio Ariza MD Katherine Takundwa, MD Nidhi Jindal, MD MTDD
[2019-01-18] MEDS: OXY IR PO PRN ×5 (04:32→20:50)
[2019-01-18] MEDS: PROTONIX PO SCH (06:03)
[2019-01-18] MEDS: LASIX IV SCH ×2 (06:03→17:13)
[2019-01-18] MEDS: AZACTAM 1 GM in NS 50 ML IV SCH ×4 (06:03→22:13)
[2019-01-18 07:24] LABS: HEMATOCRIT 25.4 % (37.0-47.0); HEMOGLOBIN 7.9 g/dL (12.0-16.0); MCH 31.6 PG (27-31); MCHC 31.1 g/dL (33-37); MCV 101.6 FL (81-99); MPV 9.7 FL (7.4-10.4); RBC 2.5 XMIL (4.2-5.4); RDW 13.4 % (11.5-14.5); WBC 3.41 X1000 (4.8-10.8)
[2019-01-18 07:27] LABS: AGAP 8; ALB/GLOB RATIO 1.4; ALBUMIN 2.7 g/dL (3.5-5.0); ALKALINE PHOSPHATASE 131 U/L (32-104); BUN 8 mg/dL (8-22); CALCIUM 7.5 mg/dL (8.8-10.2); CHLORIDE 109 mmol/L (98-107); COSMO 278; CREATININE 0.5 mg/dL (0.5-0.9); ESTIMATED GFR > 60; GLUCOSE 110 mg/dL (70-104); GOT 23 U/L (10-30); GPT 18 U/L (10-36); MAGNESIUM 1.7 mg/dL (1.5-2.7); POTASSIUM 4.2 mmol/L (3.5-5.1); SODIUM 140 mmol/L (136-145); TCO2 23 mmol/L (25-35); TOTAL BILIRUBIN 0.43 mg/dL (0.20-1.00); TOTAL PROTEIN 4.7 g/dL (6.3-8.3)
[2019-01-18] MEDS ORDERED: MAGNESIUM SULFATE 2 GM/S.W.I. 2 GM/50 ML IVPB IV ONE (08:14)
[2019-01-18] MEDS: DILAUDID IV PRN ×4 (08:28→19:56)
[2019-01-18] MEDS ORDERED: TOPAMAX PO ONE (09:34)
--- NOTE | 2019-01-18 10:27 | Diag Imaging Result Doc PS360 ---
CHEST-2 VIEWS - 01/18/2019 INDICATION: pneumonia COMPARISON: 01/15/2019 FINDINGS: Lung volumes are improved but still critically low. There is decrease in the pulmonary vascular congestion. There is some stable linear atelectasis or scarring at the left lung base. There are trace bilateral pleural effusions. Heart size is top normal. IMPRESSION: Improvement from prior. Electronically signed by Sean Fam 01/18/2019 10:24 AM
--- NOTE | 2019-01-18 10:33 | Diag Imaging Result Doc PS360 ---
CT ABDOMEN/PELVIS W/O CONTRAST - 01/18/2019 INDICATION: abdominal pain/nausea/vomiting COMPARISON: 06/17/2017, 01/16/2019 FINDINGS: There is some nonspecific linear filtrate or atelectasis in both lower lobes. There are trace pleural effusions. There is severe body wall edema. There is a small to moderate amount of ascites. There are several bilateral renal cysts. There are probably small nonobstructing 1 mm renal stones bilaterally. There are cholecystectomy clips. There is significant splenomegaly. The spleen measures 18 x 5 cm. No bowel obstruction or inflammation. There are surgical changes of probable gastric bypass. Urinary bladder, uterus, and rectum are normal. There are moderate degenerative changes of the spine. No acute or suspicious bony lesion. IMPRESSION: Numerous nonspecific issues. This exam was performed using automated exposure control, adjustment of mA or kV according to patient size, and/or use of iterative reconstruction technique Electronically signed by Sean Fam 01/18/2019 10:31 AM
[2019-01-18] MEDS: CENTRUM SILVER PO SCH (10:43)
[2019-01-18] MEDS: ALDACTONE PO SCH (10:44)
[2019-01-18] MEDS: ELIQUIS PO SCH (10:44)
[2019-01-18] MEDS: PROAMATINE PO SCH ×4 (10:44→21:19)
[2019-01-18] MEDS: SSD CREAM TOP SCH (10:45)
[2019-01-18 10:55] LABS: HEPATITIS PROFILE ACUTE SEE COMMENTS
[2019-01-18] MEDS: LYRICA PO SCH ×3 (10:56→21:19)
[2019-01-18] MEDS: FIORICET PO PRN (11:04)
[2019-01-18] MEDS: ALBUMIN 25% IV SCH (11:59)
[2019-01-18] MEDS ORDERED: IMODIUM PO PRN (16:29)
--- NOTE | 2019-01-18 17:08 | PROGRESS NOTE ---
DATE: 01/18/2019 SUBJECTIVE: The patient states that she has been having diarrhea. Stool was obtained for C difficile and was noted to be negative. OBJECTIVE: Vital Signs: Temperature 99, blood pressure 108/62, heart rate 86, respirations 16, O2 sats 99% on room air. General: This is a young female sitting up in bed in no acute distress. Heart: S1, S2 normal. Regular rate and rhythm. Lungs: Equal air entry bilaterally. No crackles. No rales. Abdomen: Positive bowel sounds. Soft, nontender, nondistended. Extremities: 3+ edema bilaterally with multiple scars on the lower extremities. Neurologic: The patient is alert and oriented x 4. LABS: White blood cell count 3.4, hemoglobin 7.9, hematocrit 25, platelets 167,000. Sodium 140, potassium 4.2, chloride 109, CO2 23, BUN 8, creatinine 0.5, glucose 110, magnesium 1.7, calcium 7.5. ASSESSMENT AND PLAN: 1. Pneumonia. Continue with antibiotic therapy and bronchodilator therapy. 2. Liver cirrhosis. Aware. Management as per GI. 3. Severe protein calorie malnutrition status post gastric bypass. Will await further recommendations from the dietitian. GI is following. 4. History of necrotizing fasciitis in both lower extremities. Stable. 5. Right lower extremity deep vein thrombosis. Continue on Eliquis. 6. Vitamin D deficiency. Continue vitamin D replacement. 7. Hypomagnesemia. Replace the patient's magnesium. 8. Anemia. The patient's hemoglobin and hematocrit are little lower today. We will continue to monitor closely. 9. Chronic pain. Continue on p.r.n. oxycodone IR. 10. Diarrhea. The stool for Clostridium difficile was negative. Will start p.r.n. Imodium. cc: Perlita Collier MD [facility]
[2019-01-18] MEDS: CULTURELLE PO SCH (21:18)
[2019-01-19] MEDS: DILAUDID IV PRN ×6 (00:09→21:43)
--- NOTE | 2019-01-19 00:23 | GASTROENTEROLOGY PROGRESS NOTE ---
DATE: 01/18/2019 SUBJECTIVE: The patient is resting in bed. She has moved her bowels. She had a soft brown bowel movement. She was able to eat 70% of her meal. She denies any fevers, rigors or chills. She complains of pain in her legs. She had low-grade temperature of 99.5 degrees. She had a gastric bypass done in [address] Cosme at the [facility]. Since then she had never an EGD done. She is getting an EGD done as she is having difficulty with keeping food down. We will perform EGD tomorrow. OBJECTIVE: Vital Signs: Temperature is 99.5, pulse of 86, respiratory rate of 16, blood pressure 108/62, oxygen saturation is 98% room air. Body weight 213 pounds 1.6 ounces. BMI 35.5 kg/m2. General: She is obese, lying in bed, in no acute distress. HEENT: Pale conjunctivae. No icterus. Pupils are equal and reactive to light. Neck: Supple. Abdomen: Obese. Anasarca noted. No guarding or rebound. Extremities: Bilateral chronic lower extremity edema noted. There is a dressing on the left lower extremity. There is a scar from previous surgery at the right lower extremity. Neurologic: She is alert, awake and oriented. LABORATORY DATA: Her hemoglobin and hematocrit is 7.9 and 25.4, white count of 3.41, platelet count of 167,000. Sodium 140, potassium 4.2 chloride 109 bicarbonate 29, with a BUN of 8, creatinine 0.5, glucose of 110, calcium 7.5, magnesium 1.7. Total bilirubin is 0.43, AST 23, ALT 18, alkaline phosphatase 131,total protein is 4.7, albumin of 2.7. Her hepatitis panel is nonreactive. Chronic liver disease workup is currently pending. Percent saturation of 40%. Ferritin of 460. Her C. Difficile toxin is negative. C. Difficile antigen is negative. Blood culture is negative x48 hours. Her stool for occult blood was negative x2. IMAGING: Abdominal pelvic CT scan done today showed trace pleural effusion. Severe body wall edema. Small to moderate amount of ascites. There are several bilateral renal cysts. The are probably small nonobstructing 1-mm renal stones bilaterally. There are cholecystectomy clips. There is significant splenomegaly, the spleen measured 18 into 5 cm. There are surgical changes of probable gastric bypass. There are moderate degenerative changes of the spine. Abdominal ultrasound showed evidence of cirrhosis with ascites and splenomegaly. IMPRESSION AND PLAN: 1. Liver cirrhosis. We will follow up on the chronic liver disease workup. It is likely to be fatty liver disease. We will follow up on the chronic liver disease workup. 2. Decreased p.o. intake and protein calorie malnutrition and hypoalbuminemia in the setting of gastric bypass. She also has difficulty keeping her food down. We will schedule for an esophagogastroduodenoscopy tomorrow under anesthesia. The risks, benefits, indications, and alternatives to the procedure were discussed with the patient and family and all questions were answered. 3. Pneumonia. We will continue antibiotics and bronchodilator dilator therapy. 4. History of necrotizing fasciitis in bilateral lower extremities. It is being followed by primary team. 5. His right lower extremity deep venous thrombosis. She has been on Eliquis. We will have to hold her Eliquis for today so that we can pursue an esophagogastroduodenoscopy tomorrow. 6. Anemia. Continue to watch for now and transfuse as needed. We will give her multivitamins daily. 7. Congestive heart failure. She is on Lasix and Aldactone. 8. Vitamin D deficiency. She is on vitamin D replacement. 9. Hypoalbuminemia. She will continue on Ensure and LiquaCel protein modular 30 packet with each meal. 10. Gastrointestinal prophylaxis. Protonix once daily. 11. Chronic pain. She is on Oxycodone IR as needed. Her stool studies are negative for Clostridium difficile. We will start her on Culturelle and we will use Imodium only if needed. 12. Based on the chronic liver disease workup we may have to do a liver biopsy at some point, we discussed that with the patient's family and all questions answered. We will follow along. cc: Aaron Talbert MD MTDZuleika
[2019-01-19] MEDS: OXY IR PO PRN ×5 (05:14→22:29)
[2019-01-19] MEDS: PROTONIX PO SCH (06:08)
[2019-01-19] MEDS: AZACTAM 1 GM in NS 50 ML IV SCH ×4 (06:08→23:39)
[2019-01-19] MEDS: LASIX IV SCH ×2 (06:08→17:17)
[2019-01-19 06:38] LABS: HEMATOCRIT 25.2 % (37.0-47.0); HEMOGLOBIN 7.6 g/dL (12.0-16.0); MCH 31.4 PG (27-31); MCHC 30.2 g/dL (33-37); MCV 104.1 FL (81-99); MPV 9.6 FL (7.4-10.4); RBC 2.42 XMIL (4.2-5.4); WBC 3.03 X1000 (4.8-10.8)
[2019-01-19] MEDS ORDERED: DIPRIVAN 1% ONE (06:52)
[2019-01-19] MEDS ORDERED: XYLOCAINE-MPF 2% ONE (06:53)
[2019-01-19 07:08] LABS: AGAP 7; ALB/GLOB RATIO 1.4; ALKALINE PHOSPHATASE 125 U/L (32-104); BUN 11 mg/dL (8-22); CALCIUM 7.9 mg/dL (8.8-10.2); CHLORIDE 110 mmol/L (98-107); COSMO 284; CREATININE 0.6 mg/dL (0.5-0.9); ESTIMATED GFR > 60; GLUCOSE 93 mg/dL (70-104); GOT 23 U/L (10-30); GPT 19 U/L (10-36); POTASSIUM 4.2 mmol/L (3.5-5.1); SODIUM 143 mmol/L (136-145); TCO2 26 mmol/L (25-35); TOTAL BILIRUBIN 0.43 mg/dL (0.20-1.00); TOTAL PROTEIN 5.1 g/dL (6.3-8.3)
[2019-01-19] MEDS: CULTURELLE PO SCH ×2 (09:24→21:44)
[2019-01-19] MEDS: PROAMATINE PO SCH ×3 (09:24→21:44)
[2019-01-19] MEDS: TOPAMAX PO SCH (09:24)
[2019-01-19] MEDS: LYRICA PO SCH ×2 (09:24→21:44)
[2019-01-19] MEDS: ALDACTONE PO SCH (09:24)
[2019-01-19] MEDS: CENTRUM SILVER PO SCH (09:25)
--- NOTE | 2019-01-19 10:34 | GASTROENTEROLOGY PROGRESS NOTE ---
DATE: 01/19/2019 SUBJECTIVE: Patient resting in bed. is at bedside. Today we were supposed to EGD, but the orders were not placed so we will have to reschedule for tomorrow morning. The patient had eaten her breakfast this morning. The patient denies any new complaints. She is eating better. She is moving her bowels. Her bowels are soft brown. She denies any fevers, rigors, chills. OBJECTIVE: Vital Signs: Temperature 98, pulse rate of 77, respiratory 16, blood pressure 105/56, saturating 100% room air. Body weight of 196 pounds 9 ounces. BMI 32.7 kg/sq m. General Appearance: Obese, lying in bed, in no acute distress. HEENT: Pale conjunctivae. No icterus. Pupils equal, reactive to light. Neck: Supple. Abdomen: Obese, soft, nontender, nondistended. Positive anasarca. Extremities: Bilateral lower extremity edema noted. Surgical dressing noted on the left leg and scar from previous surgery on the right leg noted. Neurologic: She is alert, awake, oriented. LABORATORY DATA: Hemoglobin and hematocrit is 7.6, 25.2, white count 3.03, platelet count of 155,000. Sodium 140, potassium 4.2, chloride 110, bicarb of 29 with BUN of 11, creatinine 0.6, glucose of 93, calcium 7.9. Total bilirubin is 0.43, AST 23, ALT 19, alkaline phos 125, total protein is 5.1, albumin of 3. Her serum immunoglobulin IgG is 907, IgA is 138. Her hepatitis panel is nonreactive. Other chronic liver disease workup is pending. Percent saturation of iron is 40% and ferritin of 460. IMPRESSION AND PLAN: 1. Anemia. Persistent. Will continue multivitamin once daily. We will schedule for EGD tomorrow to evaluate for anemia in setting of status post gastric bypass and having difficulty with keeping the food down. She has done well in the last few days. 2. Liver cirrhosis. Will continue follow up on the chronic liver disease workup. This could be secondary to liver disease. 3. The patient will need a liver biopsy on Saturday or , depending on clinical status to evaluate for identifying the etiology of underlying liver disease. 4. History of necrotizing fasciitis bilateral lower extremities. This is being managed by primary team. 5. History of right lower extremity DVT. She has been on Eliquis. We will hold Eliquis for today in order to prepare for EGD tomorrow. 6. GI prophylaxis. Protonix once daily. 7. Congestive heart failure. She is on Lasix and Aldactone. Being managed by the Cardiology Team. 8. Malnutrition. She is on Ensure and LiquaCel protein modular 30 g packet with each meal. 9. Chronic pain. She is on oxycodone instant release. 10. Obesity. The patient is status post gastric bypass, was done by Dr. Cosme in 2011. She will continue multivitamin 1 once daily. 11. EGD was discussed with the patient and the nurse and all questions answered. Procedure will be done by Dr. Dumont tomorrow morning. Further the EGD she may need a liver biopsy Saturday or . 12. The above plans discussed with the patient. All questions answered. Please call if any further questions. cc: Aaron Talbert MD
[2019-01-19] MEDS: SSD CREAM TOP SCH (10:45)
[2019-01-19] MEDS: FIORICET PO PRN (11:53)
--- NOTE | 2019-01-19 15:18 | PROGRESS NOTE ---
DATE: 01/19/2019 SUBJECTIVE: The patient is resting comfortably. She states that she feels that the swelling in her legs has gone down. OBJECTIVE: Vital Signs: Temperature 98.9 degrees, blood pressure 92/44, heart rate 72, respirations 16, O2 saturation is 99% on room air. General: This is a young female lying in bed, in no acute distress. Heart: S1, S2 normal. Regular rate and rhythm. Lungs: Equal air entry bilaterally. No crackles. No rales. Abdomen: Positive bowel sounds. Soft, mildly distended. Extremities: There is 2+ edema bilaterally. Neurologic: The patient is alert and oriented x4. Labs: White blood cell count 3, hemoglobin 7.6, hematocrit 25, platelets 155,000. Sodium 143, potassium 4.2, chloride 110, CO2 26, BUN 11, creatinine 0.6, glucose 93, calcium 7.9. AST 23, ALT 19, alkaline phosphatase 125. ASSESSMENT AND PLAN: 1. Pneumonia. Continue with antibiotic therapy and bronchodilator therapy. 2. Liver cirrhosis. Gastroenterology is following. 3. Severe protein calorie malnutrition. Continue with meal supplements. 4. History of necrotizing fasciitis involving both lower extremities. Stable. Wound care has been consulted. 5. Vitamin D deficiency. Continue with vitamin D replacement. 6. Chronic diastolic congestive heart failure. The patient is on Lasix. We will await further recommendations from the market asset protection manager. 7. Anemia. The patient's hemoglobin and hematocrit are trending downward. The patient is scheduled for an EGD tomorrow. 8. Chronic pain. Continue on as needed pain medication. cc: Perlita Collier MD [facility]
[2019-01-20] MEDS: DILAUDID IV PRN ×4 (05:04→21:13)
[2019-01-20] MEDS: OXY IR PO PRN ×5 (05:04→21:14)
[2019-01-20] MEDS ORDERED: DIPRIVAN 1% ONE (06:17)
[2019-01-20] MEDS ORDERED: XYLOCAINE-MPF 2% ONE (06:22)
[2019-01-20 06:48] LABS: AGAP 8; ALB/GLOB RATIO 1.2; ALBUMIN 2.7 g/dL (3.5-5.0); ALKALINE PHOSPHATASE 123 U/L (32-104); BUN 14 mg/dL (8-22); CALCIUM 7.5 mg/dL (8.8-10.2); CHLORIDE 110 mmol/L (98-107); COSMO 281; CREATININE 0.6 mg/dL (0.5-0.9); ESTIMATED GFR > 60; GLUCOSE 86 mg/dL (70-104); GOT 22 U/L (10-30); GPT 18 U/L (10-36); POTASSIUM 4.7 mmol/L (3.5-5.1); SODIUM 141 mmol/L (136-145); TCO2 23 mmol/L (25-35); TOTAL BILIRUBIN 0.32 mg/dL (0.20-1.00); TOTAL PROTEIN 4.9 g/dL (6.3-8.3)
[2019-01-20] MEDS: PROTONIX PO SCH (06:52)
[2019-01-20] MEDS: LASIX IV SCH ×2 (06:53→17:03)
[2019-01-20] MEDS: AZACTAM 1 GM in NS 50 ML IV SCH ×3 (06:53→21:24)
[2019-01-20 06:55] LABS: HEMATOCRIT 24.1 % (37.0-47.0); HEMOGLOBIN 7.4 g/dL (12.0-16.0); MCH 31.9 PG (27-31); MCHC 30.7 g/dL (33-37); MCV 103.9 FL (81-99); MPV 9.9 FL (7.4-10.4); RBC 2.32 XMIL (4.2-5.4); RDW 14.3 % (11.5-14.5); WBC 3.15 X1000 (4.8-10.8)
[2019-01-20] MEDS ORDERED: EPHEDRINE ONE (08:17)
[2019-01-20] MEDS: PROAMATINE PO SCH ×3 (09:08→21:13)
[2019-01-20] MEDS: LYRICA PO SCH ×2 (09:08→21:14)
[2019-01-20] MEDS: SSD CREAM TOP SCH (09:11)
--- NOTE | 2019-01-20 09:11 | OPERATIVE NOTE ---
PROCEDURE DATE: 01/20/2019 PROCEDURE: Upper gastrointestinal endoscopy. PROVIDER: Lionel Dumont M.D. INDICATIONS: Cirrhosis and anemia. MEDICATIONS: Monitored anesthesia care. DESCRIPTION OF PROCEDURE: Prior to the procedure, history and physical was performed. The patient's medications and allergies were reviewed. The patient's tolerance to previous anesthesia was also reviewed. The risks and benefits of the procedure and sedation options and risks were discussed with the patient. All questions were answered. Informed consent was obtained. After reviewing the risks and benefits, the patient was deemed in satisfactory condition to undergo the procedure. The endoscope was passed under direct visualization. Throughout the procedure, the patient's blood pressure, pulse, and oxygen saturation were monitored continuously. The endoscope was introduced in the mouth, and advanced to the second part of the duodenum. The upper GI endoscopy was accomplished without difficulty. The patient tolerated the procedure well. COMPLICATIONS: No immediate complications. ESTIMATED BLOOD LOSS: None. FINDINGS: Normal Renato-en-Y gastric bypass anatomy. Z-line was regular at 35 cm from the incisors. IMPRESSION: Normal Renato-en-Y gastric bypass anatomy. RECOMMENDATIONS: Resume low-salt diet. Will follow with you. Please call with any questions or concerns.
[2019-01-20] MEDS: TOPAMAX PO SCH (09:14)
[2019-01-20] MEDS: CENTRUM SILVER PO SCH (09:14)
[2019-01-20] MEDS: ALDACTONE PO SCH (09:14)
[2019-01-20] MEDS: CULTURELLE PO SCH ×2 (09:15→21:14)
--- NOTE | 2019-01-20 10:48 | PROGRESS NOTE ---
DATE: 01/20/2019 SUBJECTIVE: Complaining of shortness of breath for over 5 days. A 33-year-old female, history of necrotizing fasciitis in both lower extremities, liver cirrhosis, congestive heart failure, DVT of the right lower extremity on Eliquis. Recently in [facility], was there about a week. During the hospitalization, was treated for colitis with IV antibiotics according to the patient's discharge on 01/12/2019. Patient indicates that she, in the last couple days, has gained about 50 pounds. Takes Lasix as well as Aldactone. She is dyspneic even with slight activity. Does have a paroxysmal nocturnal dyspnea as well as orthopnea. The patient was seen and evaluated in the emergency room. ProBNP was 687. X-ray of the chest showed poor inspiratory effort with basilar atelectasis and also questionable underlying infiltrates. PAST MEDICAL HISTORY: 1. Necrotizing fasciitis in both lower extremities, also with left lower extremity wound. 2. History of liver cirrhosis. 3. History of congestive heart failure. 4. History of kidney disease. 5. History of degenerative joint disease. 6. History of DVT in the right lower extremity. OBJECTIVE: General: Today, she is awake and alert. She says her tummy feels better, less swelling. Vital Signs: She remains afebrile, temperature 98 degrees, pulse 70, respirations 15, blood pressure 103/54. HEENT: Pupils are equal and round. Lungs: Clear in all lung wynn. Cardiovascular: Regular rhythm and rate without murmur or S3. Abdomen: Soft. Skin: Warm and dry. ASSESSMENT AND PLAN: 1. She had an EGD, normal Renato-en-Y bypass anatomy. Dr. Dumont is following and he is going to resume low-salt diet. 2. Pneumonia. Continue antibiotic treatment. 3. Liver cirrhosis. 4. Severe protein calorie malnutrition. Continue her meal supplements. 5. History of necrotizing fasciitis in both lower extremities, stable. Wound Care continues to follow. 6. Vitamin D deficiency. Continue vitamin D replacement. 7. Chronic diastolic congestive heart failure, on Lasix. 8. Anemia which is stable. 9. Chronic pain. Checking some lab, alpha-1 antitrypsin levels, antimitochondrial antibodies and ceruloplasmin and smooth muscle antibodies. REVIEW OF HER ORDERS: Continue present regimen on Eliquis 2.5 mg a day, Topamax 25 mg a day, Aldactone 100 mg a day, Lyrica 100 mg b.i.d., Protonix 40 mg a day, oxycodone IR 15 mg q.4 hours, multivitamin 1 a day, Dilaudid 1 mg IV q.4 hours p.r.n., Lasix 40 mg q.12, vitamin D 44208 units p.o. every week, barbital APAP caffeine p.r.n. headache, aztreonam 1 g IV q.8 hours. cc: Canelo Carvajal MD
[2019-01-21] MEDS: AZACTAM 1 GM in NS 50 ML IV SCH ×2 (01:33→06:06)
[2019-01-21] MEDS: DILAUDID IV PRN ×6 (04:57→22:29)
[2019-01-21] MEDS: LASIX IV SCH ×2 (04:57→05:17)
[2019-01-21] MEDS: OXY IR PO PRN ×5 (04:57→21:34)
[2019-01-21] MEDS: PROTONIX PO SCH (06:14)
--- NOTE | 2019-01-21 08:19 | PROGRESS NOTE ---
DATE: 01/21/2019 SUBJECTIVE: Ms. Hurtado reports that she is feeling well. She was of the understanding that she was going to get a liver biopsy. I have explained that we are not going to do a venous access port and have discussed this with Dr. Dumont. OBJECTIVE: Temperature is 98.7 degrees, pulse 71, respirations 14, blood pressure 92/50. Pupils are equal and round. Lungs are clear in all lung wynn. Cardiovascular Examination: Regular rhythm and rate without murmur or S3. Urine output is 2200 mL. ASSESSMENT AND PLAN: 1. Esophagogastroduodenoscopy showed normal Renato-en-Y bypass anatomy. Dr. Dumont is following, resumed her low-salt diet. 2. Pneumonia which appears to be adequately treated. 3. Liver cirrhosis. 4. Severe protein calorie malnutrition. Continue her supplements. 5. She has had a history of necrotizing fasciitis in both lower extremities. This is healing well. Wound care continues to follow. 6. Vitamin D deficiency. Continue vitamin D replacement. 7. Chronic diastolic congestive heart failure. Diurese as necessary. 8. Anemia, stable. 9. Chronic pain. 10. Some of her labs are pending. There was talk with Dr. Dumont about going home today. She is under the impression that she is supposed to have a liver biopsy. cc: Canelo Carvajal MD
[2019-01-21 10:35] LABS: INR 1.1; PROTIME 15.1 Seconds (11.0-16.0)
[2019-01-21 10:53] LABS: BASO# 0.01 X1000 (0.0-0.2); BASO% 0.3 % (0.0-0.8); EOS# 0.08 X1000 (0.0-0.7); EOS% 2.1 % (0.0-10.0); HEMOGLOBIN 7.8 g/dL (12.0-16.0); LYMPH# 0.77 X1000 (1.2-3.4); LYMPH% 20.6 % (20.5-51.1); MCH 31.3 PG (27-31); MCHC 31.2 g/dL (33-37); MCV 100.4 FL (81-99); NEUT# 2.57 X1000 (1.4-6.5); PLT 130 X1000 (130-400); RBC 2.49 XMIL (4.2-5.4); RDW 14.4 % (11.5-14.5); WBC 3.73 X1000 (4.8-10.8)
[2019-01-21 10:57] LABS: AGAP 8; ALB/GLOB RATIO 1.4; ALBUMIN 3.1 g/dL (3.5-5.0); ALKALINE PHOSPHATASE 132 U/L (32-104); BUN 14 mg/dL (8-22); CALCIUM 7.9 mg/dL (8.8-10.2); CHLORIDE 108 mmol/L (98-107); COSMO 281; CREATININE 0.5 mg/dL (0.5-0.9); ESTIMATED GFR > 60; GLUCOSE 90 mg/dL (70-104); GOT 30 U/L (10-30); GPT 23 U/L (10-36); POTASSIUM 4.9 mmol/L (3.5-5.1); SODIUM 141 mmol/L (136-145); TCO2 25 mmol/L (25-35); TOTAL BILIRUBIN 0.36 mg/dL (0.20-1.00); TOTAL PROTEIN 5.3 g/dL (6.3-8.3)
[2019-01-21] MEDS: TOPAMAX PO SCH (11:12)
[2019-01-21] MEDS: IMODIUM PO SCH ×3 (11:12→21:31)
[2019-01-21] MEDS: ALDACTONE PO SCH (11:12)
[2019-01-21] MEDS: SSD CREAM TOP SCH (11:13)
[2019-01-21] MEDS: PROAMATINE PO SCH ×3 (11:13→21:31)
[2019-01-21] MEDS: CULTURELLE PO SCH ×2 (11:14→21:30)
[2019-01-21] MEDS: LYRICA PO SCH ×2 (11:14→21:31)
[2019-01-21] MEDS: CENTRUM SILVER PO SCH (11:14)
[2019-01-21] MEDS: FIORICET PO PRN (12:03)
[2019-01-21] MEDS: ZOFRAN IV PRN ×2 (17:40→23:29)
[2019-01-21 21:48] LABS: PTT 38.6 Seconds (22.3-41.8)
[2019-01-21 21:56] LABS: INR 1.12; PROTIME 15.3 Seconds (11.0-16.0)
--- NOTE | 2019-01-21 23:52 | PROVIDER PROGRESS NOTE ---
Progress Note SUBJECTIVE: No acute overnight event. No N/V/F, CP, SOB. LE swelling improved. She complains of small-volume diarrhea up to 15 times per day. US guided liver biopsy was planned for today, but postponed given radiology availability until tomorrow. OBJECTIVE: Last Vital Signs Temp 99.5 F 01/21/19 20:00 Pulse 82 01/21/19 20:00 Resp 16 01/21/19 16:00 BP 99/44 01/21/19 20:00 Pulse Ox 100 01/21/19 20:00 Height 5 ft 5 in Weight 173 lb 7 oz GEN: awake, alert, chronically ill appearing, NAD HEENT: anicteric, MMM NECK: supple, no jvd CV: RRR, no murmurs PULM: CTAB, no wheezing ABD: obese, soft NT, ND, NABS, no rebound or guarding EXT: trace LE edema, LLE with wound dressing c/d/i NEURO: nonfocal LABS: 01/21/19 01/21/19 01/21/19 10:20 10:20 10:20 WBC 3.73 L Hgb 7.8 L MCV 100.4 H Plt Count 130 INR 1.10 Sodium 141 Potassium 4.9 Chloride 108 H Carbon Dioxide 25 BUN 14 Creatinine 0.5 Total Bilirubin 0.36 AST 30 ALT 23 Alkaline Phosphatase 132 H Total Protein 5.3 L Albumin 3.1 L EGD 12/20 CT ABDOMEN/PELVIS W/O CONTRAST - 01/18/2019 FINDINGS: There is some nonspecific linear filtrate or atelectasis in both lower lobes. There are trace pleural effusions. There is severe body wall edema. There is a small to moderate amount of ascites. There are several bilateral renal cysts. There are probably small nonobstructing 1 mm renal stones bilaterally. There are cholecystectomy clips. There is significant splenomegaly. The spleen measures 18 x 5 cm. No bowel obstruction or inflammation. There are surgical changes of probable gastric bypass. Urinary bladder, uterus, and rectum are normal. There are moderate degenerative changes of the spine. No acute or suspicious bony lesion. IMPRESSION: Numerous nonspecific issues. US ABDOMEN-COMPLETE 01/16/2019 COMMENT: The liver is hyperechoic and nodular in contour. There is ascites. There is antegrade flow in the portal vein. There is no evidence of biliary dilatation the common bile duct measuring less than 7 mm. The spleen is enlarged measuring over 16 cm in AP dimension. The kidneys are without evidence of hydronephrosis. There is a 3.6 cm cyst in the upper pole the right kidney. The visualized portions of the aorta and inferior vena cava are normal in caliber. The head of the pancreas is unremarkable the remainder is obscured. The gallbladder is surgically absent. IMPRESSION: Cirrhosis with ascites. Splenomegaly TTE 01/16 FINDINGS: 1. The right atrium appears normal in size. 2. Trace tricuspid regurgitation. RV systolic pressure 23. 3. Normal RV size and systolic function. 4. No significant pulmonic insufficiency. 5. Normal left atrial size with a dimension of 3.2 cm. 6. No mitral valve prolapse. I do not see any clear evidence of significant mitral regurgitation. 7. Normal LV size, end-diastolic dimension of 4.8. Normal wall thicknesses with a posterior and interventricular septal wall thickness of 0.6 cm each. Normal LV systolic function. Estimated EF of 70% with normal wall motion. 8. Aortic valve opens well. It is trileaflet. No evidence of stenosis or insufficiency. 9. Aorta appears normal in visualized segments. 10. There appears to be a large pleural effusion present. No obvious pericardial effusion seen. A/P: Ms. Belkis Vidal is a 33 year old woman h/o morbid obesity s/p RYGB, necrotizing fasciitis of bilateral LEs s/p abx and debridement, - related CHF and pericardial effusion now resolved, chronic protein calorie malnutrition, chronic anemia admitted with worsening ascites and volume overload. ECHO on 01/16 was normal. Chronic liver disease workup was only revealing for low ceruloplasmin, which I suspect is likely nutritional related over Jared's disease as ALP is elevated rather than low. She has responded well to diuresis with IV lasix and oral aldactone and currently appears near euvolemic. # Ascites/LE edema: euvolemic; will stop IV lasix and transition to oral lasix 40mg BID and contine aldactone 100mg daily; low Na diet; normal Creatinine # Anemia: normal folate, vitamin B12, and ferritin; suspect AOCD; EGD was unrevealing # History of CHF: recent ECHO is normal; no evidence of CHF # Cirrhosis: most likely NAFLD; low MELD; NPO after MN for US-guided liver biopsy; if biopsy is negative for fatty liver, then will consider 24-hr urinary copper to evaluate for Jared's; this can be done as outpatient # Diarrhea: stool studies negative; CT negative for colitis; she has not been receiving prn imodium; will schedule antidiarrheals; on probiotic # History of DVT: holding home Eliquis in anticipation of liver biopsy tomorrow, NPO after MN Will follow with you.
--- NOTE | 2019-01-22 00:32 | PROVIDER PROGRESS NOTE ---
Progress Note SUBJECTIVE: No acute overnight events. Patient denies abdominal pain, N/V/F, CP or SOB. LE swelling improved OBJECTIVE: Last Vital Signs Temp 98.8 F 01/22/19 00:00 Pulse 70 01/22/19 00:00 Resp 16 01/21/19 16:00 BP 93/53 01/22/19 00:00 Pulse Ox 99 01/22/19 00:00 Height 5 ft 5 in Weight 173 lb 7 oz EGD 12/20 CT ABDOMEN/PELVIS W/O CONTRAST - 01/18/2019 FINDINGS: There is some nonspecific linear filtrate or atelectasis in both lower lobes. There are trace pleural effusions. There is severe body wall edema. There is a small to moderate amount of ascites. There are several bilateral renal cysts. There are probably small nonobstructing 1 mm renal stones bilaterally. There are cholecystectomy clips. There is significant splenomegaly. The spleen measures 18 x 5 cm. No bowel obstruction or inflammation. There are surgical changes of probable gastric bypass. Urinary bladder, uterus, and rectum are normal. There are moderate degenerative changes of the spine. No acute or suspicious bony lesion. IMPRESSION: Numerous nonspecific issues. US ABDOMEN-COMPLETE 01/16/2019 COMMENT: The liver is hyperechoic and nodular in contour. There is ascites. There is antegrade flow in the portal vein. There is no evidence of biliary dilatation the common bile duct measuring less than 7 mm. The spleen is enlarged measuring over 16 cm in AP dimension. The kidneys are without evidence of hydronephrosis. There is a 3.6 cm cyst in the upper pole the right kidney. The visualized portions of the aorta and inferior vena cava are normal in caliber. The head of the pancreas is unremarkable the remainder is obscured. The gallbladder is surgically absent. IMPRESSION: Cirrhosis with ascites. Splenomegaly TTE 01/16 FINDINGS: 1. The right atrium appears normal in size. 2. Trace tricuspid regurgitation. RV systolic pressure 23. 3. Normal RV size and systolic function. 4. No significant pulmonic insufficiency. 5. Normal left atrial size with a dimension of 3.2 cm. 6. No mitral valve prolapse. I do not see any clear evidence of significant mitral regurgitation. 7. Normal LV size, end-diastolic dimension of 4.8. Normal wall thicknesses with a posterior and interventricular septal wall thickness of 0.6 cm each. Normal LV systolic function. Estimated EF of 70% with normal wall motion. 8. Aortic valve opens well. It is trileaflet. No evidence of stenosis or insufficiency. 9. Aorta appears normal in visualized segments. 10. There appears to be a large pleural effusion present. No obvious pericardial effusion seen.
[2019-01-22] MEDS: OXY IR PO PRN ×4 (01:30→14:40)
[2019-01-22] MEDS: DILAUDID IV PRN ×5 (03:06→18:46)
[2019-01-22] MEDS: ZOFRAN IV PRN ×2 (03:07→06:11)
[2019-01-22] MEDS: IMODIUM PO SCH ×4 (03:17→15:20)
[2019-01-22] MEDS: PROTONIX PO SCH (06:13)
--- NOTE | 2019-01-22 08:05 | Diag Imaging Result Doc PS360 ---
EXAM: US LIVER BIOPSY W S/I 01/22/2019 HISTORY: cirrhosis TECHNIQUE: Ultrasound-guided biopsy of the liver COMMENT: The risks and benefits of the procedure including the possibility of bleeding, infection, or reaction to lidocaine was discussed with the patient and she agreed to the procedure. Following sterile preparation the skin and administration 1% lidocaine to the skin and deeper soft tissues, an 18-gauge coaxial Temno core biopsy needle was employed to obtain three cores from the anterior left lobe. There are no immediate complications and the patient tolerated the procedure well. IMPRESSION: Successful ultrasound-guided liver biopsy. Electronically signed by Corby Ortiz 01/22/2019 8:02 AM
[2019-01-22] MEDS: CENTRUM SILVER PO SCH (08:32)
[2019-01-22] MEDS: CULTURELLE PO SCH (08:32)
[2019-01-22] MEDS: PROAMATINE PO SCH ×2 (08:32→14:07)
[2019-01-22] MEDS: ALDACTONE PO SCH (08:32)
[2019-01-22] MEDS: LYRICA PO SCH (08:37)
[2019-01-22] MEDS ORDERED: LASIX PO SCH (09:00)
--- NOTE | 2019-01-22 10:14 | PROGRESS NOTE ---
DATE: 01/22/2019 SUBJECTIVE: Ms. Hurtado had a biopsy this morning and I think she would like to go home this evening. She is asking for more pain medicine. I have explained to her that we need to keep her pain medicine under control because of her liver disease and hopefully she can go home this afternoon. OBJECTIVE: Temperature is 98.5 degrees, pulse 75, respirations 16, blood pressure 99/49. Pupils are equal and round. Lungs are clear in all lung wynn. Cardiovascular Examination: Regular rhythm and rate without murmur or S3. Abdomen is soft. Skin is warm and dry. ASSESSMENT AND PLAN: 1. Successful ultrasound-guided liver biopsy. This is a 33-year-old, morbidly obese, white female status post a Renato-en-Y gastric bypass, recent necrotizing fasciitis of bilateral lower extremities with debridement, -related congestive heart failure, pericardial effusion now resolved, chronic protein calorie malnutrition, chronic anemia with worsened ascites and volume overload. Echocardiogram on 01/16/2019 was normal. The chronic liver disease workup revealing low ceruloplasmin which suspect is probably nutritional and not Jared's disease. Her alkaline phosphatase is elevated rather than low. She responded to diuresis so we will see what the liver biopsy shows. 2. For the anemia, continue folate and B12. 3. As far as left ventricular function, no evidence of congestive heart failure. 4. Her cirrhosis is most likely nonalcoholic fatty liver disease. She has a low MELD. We will see what the liver biopsy shows, see if we can get her home today. We will discuss with Dr. Joseph. cc: Canelo Carvajal MD
[2019-01-22] MEDS: TOPAMAX PO SCH (12:17)
[2019-01-22] MEDS: SSD CREAM TOP SCH (14:08)
[2019-01-22 14:22] VITALS: BP 92/47
--- NOTE | 2019-01-22 15:18 | GASTROENTEROLOGY PROGRESS NOTE ---
DATE: 01/22/2019 SUBJECTIVE: Resting in bed. She had a liver biopsy done this morning. We will follow up the results. She complains of discomfort in the liver biopsy site. She was able to eat her meal this morning. OBJECTIVE: Vitals: Temperature 98.5 degrees pulse rate of 75, respiratory rate of 16, blood pressure of 99/49, saturating 100% on room air. Weight: Body weight of 166 pounds 9 ounces. BMI 27.7 kg/m2. General: Patient is moderately built, moderately nourished, lying in bed, in no acute distress. HEENT: Pale conjunctiva. No icterus. Neck: Supple. Abdomen: There is discomfort in the right upper quadrant with recent liver biopsy. No guarding. No rebound. Extremities: No cyanosis, clubbing. Bilateral chronic lower extremity edema noted. There is a surgical dressing on the left lower extremity. There is a scar chapin from prior surgery on the right lower extremity. Neurological: She is alert, awake, oriented x3. DIAGNOSTIC STUDIES: Hemoglobin is 7.8, hematocrit 25, white count of 3.73, platelet count of 130,000. Her INR 1.12, PT of 15.3, PTT of 38.6. Sodium 141, potassium 4.9, chloride 108, bicarbonate 25, anion gap of 8, BUN of 14, creatinine 1.5, glucose of 90, calcium is 7.9, her total bilirubin is 0.36, AST 30, ALT 23, alkaline phosphatase 1, total protein is 5.3, albumin of 3.12. Alpha 1 antitrypsin is 151. Ceruloplasmin level of 11.5 which is low. B12 of 1238, folate of 14. Immunoglobulins: IgG of 907. AMA is less than 0.1. Antismooth muscle antibody is negative. Hepatitis panel is nonreactive. MONCHO is positive. Anti-dsDNA is 40. C difficile toxin is negative. Antigen is negative. Blood culture unchanged after 5 days. Stool for occult blood was negative x2. Liver biopsy via ultrasound was done today and showed 3 cores were obtained from the anterior left lobe. IMPRESSION AND PLAN: 1. Cirrhosis of the liver, complicated with ascites, lower extremity edema. Unclear etiology. We will follow up on liver biopsy. Her chronic liver disease workup has shown positive MONCHO and low ceruloplasmin level. We will order 24-hour urine copper as an inpatient for now. 2. Diarrhea. Has improved. Continue on probiotics. 3. History of deep vein thrombosis. Her Eliquis was withheld for her liver biopsy today. We will start Eliquis tomorrow if okay with the primary care team. 4. History of congestive heart failure. Her current echo shows a left ventricle ejection fraction is 70%. She needs to be followed by Cardiology. I discussed her Echo results with Dr Mata. 5. Ascites. She will continue on Lasix and Aldactone. She will continue on low-sodium diet, less than 2 g per 24 hours. Free Fluid restriction to less than 1.5 liters in 24 hours. 6. Gastrointestinal prophylaxis. Continue PPIs. 7. Malnutrition: Improving and patient is eating better in last few days. We will follow up all of the labs and the liver biopsy results. If needed, we may have to take an opinion at a tertiary care center or [facility] for unexplained liver dysfunction. The above plans were discussed with the patient, and all questions were answered. Please call us with any further questions. cc: MD Loree Ariza MD [facility]
--- NOTE | 2019-01-22 16:51 | DISCHARGE SUMMARY ---
ADMISSION DATE: 01/16/2019 DISCHARGE DATE: 01/22/2019 PRIMARY CARE PHYSICIAN: She is followed by Dr. Berman. PRESENTING COMPLAINT: She complained of shortness of breath for 5 days. HISTORY OF PRESENT ILLNESS: Presented on 01/16/2019, a 33-year-old white female with history of necrotizing fasciitis of both extremities, liver cirrhosis, congestive heart failure, and DVT of the right lower extremity, on Eliquis. She has was recently in [facility]. Was there for about a week. During the hospitalization, she was treated for colitis with IV antibiotics. According to the patient, she was discharged on 01/12/2019. Patient indicated in the last couple days she had gained about 50 pounds. Takes Lasix as well as Aldactone. She was dyspneic with even slight activity. She had paroxysmal nocturnal dyspnea as well as orthopnea. She was seen in the emergency room. ProBNP was 687. Chest x-ray showed poor inspiratory effort, bibasilar atelectasis, also questionable underlying infiltrates, and she was admitted for further management. PAST MEDICAL HISTORY: 1. Again, necrotizing fasciitis of both lower extremities. Also has a left lower extremity wound. Had a skin graft. 2. History of liver cirrhosis. 3. History of congestive heart failure. 4. History of kidney disease. 5. History of degenerative joint disease. 6. History of DVT in the right lower extremity. MEDICATIONS ON PRESENTATION: 1. Apixaban 2.5 mg p.o. twice a day. 2. Midodrine 5 mg p.o. 3 times a day. 3. Lyrica 100 mg twice a day. 4. Lasix 80 mg a day. 5. Spironolactone 100 mg a day. 6. Oxy IR 15 mg every 4 hours p.r.n. 7. Silvadene cream. ADMISSION DIAGNOSES: 1. Generalized edema, possibly multifactorial, including congestive heart failure as well as decompensated liver disease. She was put on some diuretics and diuresed well. They monitored her input and output. 2. Left lower extremity cellulitis wound from history of necrotizing fasciitis. We gave her local wound care. This seemed to improve. 3. Anemia. She was supplemented with B12 and folate. Iron studies were checked. 4. Hypocalcemia. Checked a phosphorus level as well as her 25 hydroxy vitamin D level. She had an intact PTH level. 5. Hypoalbuminemia, probably related to poor p.o. intake and malnutrition as well as chronic liver disease. 6. Deep venous thrombosis prophylaxis was given. She is already on Eliquis. 7. Gastrointestinal prophylaxis. She was on a proton pump inhibitor. DIAGNOSTICS: She had an echocardiogram on 01/16/2019. Normal right ventricular size and systolic function. Normal left atrial size. Normal left ventricular size, normal wall thickness. Ejection fraction 70% with normal wall motion. No significant valvular dysfunction. She did not have elevated right-sided pressures. RV systolic pressure was [address] of the chest on 01/16/2019: Cardiomegaly with small pleural effusions, multifocal infiltrates and basilar atelectasis, hepatosplenomegaly. At least a small amount of abdominal ascites. HOSPITAL COURSE: GI was consulted, Dr. Talbert, and his impression was questionable liver cirrhosis, suspected non alcoholic steatohepatitis with underlying obesity. She is status post Renato-en-Y gastric bypass and poor nutrition with low albumin. Her p.o. intake improved. Followup chest x-ray on 01/18/2019 showed improvement. There is decrease in pulmonary vascular congestion. Abdominal and pelvic CT done on 01/18/2019 showed numerous nonspecific issues. There was severe body wall edema, small amount of ascites, and several bilateral renal cysts. Nonobstructing 1 mm renal stones bilaterally. Cholecystectomy clips. Spleen slightly enlarged. No bowel obstruction. The patient underwent upper gastroesophageal endoscopy. She had normal Renato-en-Y gastric bypass anatomy. Z-line was regular at 35 cm from the incisors and no sign of other pathology. The patient underwent liver biopsy on 01/22/2019, which was successful. Results are not back yet. Clinically better and felt she was ready go home. She has requested some pain medicine until she gets established with her new primary care. DISCHARGE MEDICATIONS: I will let her have some Fioricet p.r.n. headache, vitamin D 50,000 units every week, Lasix 40 mg p.o. b.i.d., Culturelle 1 b.i.d., Imodium 2 mg p.o. every 6 hours p.r.n., midodrine 5 mg p.o. which she takes 3 times a day, multivitamin Centrum Silver once a day, Oxy IR 15 mg every 4 hours (I will give her 40 of those, no refills), Protonix 40 mg a day, Lyrica 100 mg b.i.d., spironolactone 100 mg daily, and Topamax 20 mg p.o. daily. cc: Canelo Carvajal MD
== END 2019-01-22 18:54 | disposition home or self-care (01) | DRG 433 ==
LOC: ED 20:07 → 4N 01-16 07:42 → SUATTDRO 01-16 07:42
PROVIDERS: ATTEND Emergency Medicine
CPT/HCPCS: 47000; 71020; 71046; 71250; 74176; 76700; 76942; 80048; 80053; 80074; 82103; 82140; 82270; 82306; 82330; 82390; 82550; 82607; 82728; 82746; 82784; 83036; 83516; 83540; 83550; 83735; 83880; 83970; 84100; 84145; 84443; 84484; 85025; 85027; 85610; 85730; 86038; 86039; 86235; 86255; 87040; 87324; 87449; 93005; 93306; 94761; 96374; 96375; 99285; A9270; J0456; J0610; J1170; J1885; J1940; J2405; J3475; P9047; S0073

== ENCOUNTER 2019-02-07 06:49 | Inpatient (IN) ==
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
[2019-02-07 07:37] LABS: BASO# 0.01 X1000 (0.0-0.2); BASO% 0.3 % (0.0-0.8); EOS% 3.4 % (0.0-10.0); HEMATOCRIT 33.1 % (37.0-47.0); HEMOGLOBIN 10.4 g/dL (12.0-16.0); LYMPH# 0.91 X1000 (1.2-3.4); LYMPH% 31.2 % (20.5-51.1); MCH 31.6 PG (27-31); MCHC 31.4 g/dL (33-37); MCV 100.6 FL (81-99); MONO# 0.26 X1000 (0.11-0.59); MONO% 8.9 % (1.7-9.3); MPV 10.4 FL (7.4-10.4); NEUT# 1.64 X1000 (1.4-6.5); NEUT% 56.2 % (42.2-75.2); PLT 148 X1000 (130-400); RBC 3.29 XMIL (4.2-5.4); RDW 15.4 % (11.5-14.5); WBC 2.92 X1000 (4.8-10.8)
[2019-02-07 07:47] LABS: INR 0.99; PROTIME 13.9 Seconds (11.0-16.0)
[2019-02-07 07:48] LABS: PTT 32.1 Seconds (22.3-41.8)
[2019-02-07 07:49] LABS: URINE SOURCE CATH
--- NOTE | 2019-02-07 07:56 | Diag Imaging Result Doc PS360 ---
EXAM: CHEST-PORTABLE HISTORY: poss overdose TECHNIQUE: Chest single view COMPARISON: 02/12/2019 FINDINGS: Poor inspiratory effort. The heart is not enlarged. The vessels are not distended. There are no infiltrates. No effusion identified. IMPRESSION: Negative exam. Electronically signed by Hemant Gonzalez 02/07/2019 7:54 AM
[2019-02-07 07:59] LABS: BILIRUBIN URINE NEGATIVE (NEGATIVE); BLOOD URINE SMALL (NEGATIVE); COLOR YELLOW; GLUCOSE URINE NEGATIVE (NEGATIVE); KETONE URINE NEGATIVE (NEGATIVE); LEUKOCYTES URINE NEGATIVE (NEGATIVE); NITRITE URINE NEGATIVE (NEGATIVE); PH URINE 5.5; PROTEIN URINE TRACE mg/dL (NEGATIVE); SP GRAVITY URINE 1.035; TURBIDITY URINE CLEAR (CLEAR); UROBILINOGEN URINE NORMAL (NORMAL)
[2019-02-07 08:04] LABS: AGAP 11; ALB/GLOB RATIO 1.6; ALKALINE PHOSPHATASE 224 U/L (32-104); BUN 26 mg/dL (8-22); CHLORIDE 103 mmol/L (98-107); CK PROFILE 47 U/L (24-173); COSMO 284; CREATININE 0.7 mg/dL (0.5-0.9); ESTIMATED GFR > 60; GLUCOSE 89 mg/dL (70-104); GOT 35 U/L (10-30); GPT 20 U/L (10-36); POTASSIUM 4.1 mmol/L (3.5-5.1); SODIUM 140 mmol/L (136-145); TCO2 26 mmol/L (25-35); TOTAL BILIRUBIN 0.45 mg/dL (0.20-1.00); TOTAL PROTEIN 6.5 g/dL (6.3-8.3)
[2019-02-07 08:24] LABS: UR EPITHELIAL CELLS <10 /HPF (<10); URINE BACTERIA NEGATIVE /HPF; URINE RBC <10 /HPF (<10); URINE WBC <10 /HPF (<10)
[2019-02-07 08:25] LABS: URINE CRYSTALS CA OXALATE PRESENT; URINE YEAST NONE SEEN
[2019-02-07 10:30] LABS: UR AMPHETAMINES QUAL NONE DETECTED (NONE DETECT); UR BARBITUATES QUAL PRESUMPTIVE POSITIVE (NONE DETECT); UR BENZODIAZEPIN QUAL NONE DETECTED (NONE DETECT); UR CANNABINOIDS QUAL PRESUMPTIVE POSITIVE (NONE DETECT); UR COCAINE QUAL NONE DETECTED (NONE DETECT); UR METHADONE QUAL NONE DETECTED (NONE DETECT); UR OPIATES QUAL NONE DETECTED (NONE DETECT); UR OXYCODONE QUAL NONE DETECTED (NONE DETECT); UR PCP QUAL NONE DETECTED (NONE DETECT)
[2019-02-07] MEDS ORDERED: ATIVAN ONE (11:57)
[2019-02-07] MEDS ORDERED: ATIVAN IV ONE (11:59)
--- NOTE | 2019-02-07 12:47 | HISTORY AND PHYSICAL ---
HISTORY OF PRESENT ILLNESS: She was last here on 12/27/2018 and she was discharged home it looks like on 01/22/2019. She has been to the emergency room a couple of times since that time. She is back here because her brought her in. Altered mental status, metabolic encephalopathy. She has had several falls, very weak and delirium and confusion. He was counting the number of tablets in her Suboxone and also her opioid pain medicine. PAST MEDICAL HISTORY: 1. Necrotizing fasciitis both extremities; also had left lower extremity wound that was slow to heal from that, but these have healed. 2. History of liver cirrhosis. 3. Congestive heart failure. 4. Kidney disease. 5. Degenerative joint disease. 6. Deep vein thrombosis of the right lower extremity. PAST SURGICAL HISTORY: She has had extensive debridement of the right lower extremity with skin graft, recent debridement of left lower extremity, cholecystectomy, section, tubal ligation, gastric bypass, and tonsillectomy. SOCIAL HISTORY: History of cigarette smoking, alcohol and drug use. FAMILY HISTORY: Positive for diabetes mellitus. ALLERGIES: Allergic to penicillin, morphine and cephalexin. REVIEW OF SYSTEM: Not able to get much review of systems, but mainly from the . Has not reported chest pain, shortness of breath, fever, chills, change in vision or hearing acuity, but increased weakness, increased confusion, increased falling. Endocrinologic/Hematologic: No significant history. Her legs have healed, but she has had a couple of recent bruising abrasions from falling. PHYSICAL EXAMINATION: VITAL SIGNS: Temperature 98.0 degrees, pulse 76, respirations 16, blood pressure 91/66. EYES: Pupils are equal and round. LUNGS: Clear in all lung wynn. CARDIOVASCULAR EXAM: Regular rhythm and rate without murmur or S3. ABDOMEN: Soft. SKIN: Warm and dry. LABS: White count 2920, hematocrit is 33, hemoglobin is 10. Sodium 140, potassium 4.1, chloride 103. BUN 26, creatinine 0.7. AST is 35, ALT 20, alkaline phos 224. PT is 13.9, PTT 32. Urinalysis positive for barbiturates, positive for cannabinoids. Urinalysis unremarkable. X-RAYS: Chest x-ray: Negative exam. No infiltrates. ASSESSMENT AND PLAN: 1. Metabolic encephalopathy secondary to polypharmacy medication. She is on Suboxone. She is taking cannabinoids and barbiturates. She fell in the emergency room. She is very weak, and she had some tremor activity, not sure if it was tonic/clonic. I did give her intravenous Ativan, but I feel like we need to let her detoxify. So, going to hold the Suboxone. We are going to hold the Lexapro, Lasix, levofloxacin. I am going to hold Flagyl. I am going to hold midodrine 5 mg three times a day. We are just basically going to hold her off of her medications. Lyrica will hold and Aldactone I will continue at 100 mg daily as she has had some ascites from portal hypertension. 2. Portal hypertension, alcoholic cirrhosis. She has really minimal ascites or fluid buildup at this time. We will continue the Aldactone 100 mg oral daily. 3. Normocytic anemia, which is mild. 4. Renal function looks good. Mild elevation of AST. No elevation of bilirubin or troponin. We will check her thyroid, T4, thyroid stimulating hormone and follow her electrolytes. We will give her some normal saline; will run it at 85 mL an hour. She has reported history of congestive heart failure, though I did remember looking on her echocardiogram. I think she has good left ventricular systolic function, and I think this was echocardiogram with Doppler done on 01/16/2019. She has got ejection fraction 70%. Normal left ventricular size and RV systolic pressure 23. So, I think we need to let her detoxify at this time. We will put her in the intensive care unit. cc: Canelo Carvajal MD
[2019-02-07] MEDS ORDERED: PHENOBARBITAL IV PRN (14:22)
[2019-02-07] MEDS ORDERED: TYLENOL PO PRN (14:22)
[2019-02-07] MEDS ORDERED: ZOFRAN IV PRN (14:22)
[2019-02-07] MEDS: NS 1,000 ML IV SCH (14:48)
[2019-02-07] MEDS: TORADOL IV SCH (20:48)
[2019-02-08] MEDS: TORADOL IV SCH (02:40)
[2019-02-08] MEDS: NS 1,000 ML IV SCH ×2 (02:40→14:25)
[2019-02-08 07:32] LABS: BASO# 0.01 X1000 (0.0-0.2); BASO% 0.3 % (0.0-0.8); EOS# 0.08 X1000 (0.0-0.7); EOS% 2.3 % (0.0-10.0); HEMOGLOBIN 9.3 g/dL (12.0-16.0); LYMPH% 29.2 % (20.5-51.1); MCH 31.3 PG (27-31); MCV 104.4 FL (81-99); MONO# 0.24 X1000 (0.11-0.59); MPV 10.6 FL (7.4-10.4); NEUT# 2.09 X1000 (1.4-6.5); NEUT% 61.2 % (42.2-75.2); PLT 134 X1000 (130-400); RBC 2.97 XMIL (4.2-5.4); RDW 15.6 % (11.5-14.5); WBC 3.42 X1000 (4.8-10.8)
[2019-02-08 07:40] LABS: AGAP 7; BUN 20 mg/dL (8-22); CHLORIDE 111 mmol/L (98-107); COSMO 285; CREATININE 0.5 mg/dL (0.5-0.9); ESTIMATED GFR > 60; GLUCOSE 84 mg/dL (70-104); POTASSIUM 4.4 mmol/L (3.5-5.1); SODIUM 142 mmol/L (136-145); TCO2 24 mmol/L (25-35)
--- NOTE | 2019-02-08 08:30 | PROGRESS NOTE ---
DATE: 02/08/2019 SUBJECTIVE: She is awake. She appears to be oriented x3. She is requesting to go home. She is also asking for something for pain in the ICU. She did eat some breakfast. OBJECTIVE: Temperature 97.7 degrees, pulse 68, respirations 14, blood pressure 83/47. Pupils are equal and round. Cardiovascular Examination: Regular rhythm and rate without murmur or S3. Abdomen is soft. Skin is warm and dry. Urine output is 1400 mL. No pedal edema. Lungs are clear anterolateral. Monitor shows sinus rhythm. Blood work this morning, white count was 3420, hematocrit is 31, platelet count is 134,000. Sodium 142, potassium 4.4, chloride 110, BUN 20, creatinine 0.5. ASSESSMENT AND PLAN: 1. Metabolic encephalopathy secondary to polypharmacy. Drug screen positive for cannabinoids and barbiturates. She is on Suboxone. It appears she took too many of her Suboxone as well as other medications. She is improved this morning. We are going to withhold all opioids. She is requesting pain medicine. I do not want her to go home. She is at risk to fall, very weak. 2. Portal hypertension, history of cirrhosis. She is on Aldactone. Ascites seems to be minimal at this time. 3. Normocytic anemia, which is mild. 4. Renal function looks good. 5. Encouraged oral intake. We will sit her up in a chair and try to work on her strength. Continue present measures. They note that in the emergency room, it was difficult to tell if she was having a real seizure. She seemed to be cognizant and would open her eyes when I would speak to her. I did put her on Ativan as needed and some phenobarbital as needed for seizure activity. Her chemistries this morning looked good. Creatinine 0.5, sodium 142, potassium 4.4, chloride 111, BUN 20. cc: Canelo Carvajal MD
[2019-02-08] MEDS ORDERED: SUBOXONE 8 MG/2 MG SL ONE (15:11)
[2019-02-08] MEDS: VITAMIN B-1 PO SCH (15:43)
[2019-02-08] MEDS: SUBOXONE 8 MG/2 MG SL SCH (20:00)
[2019-02-09] MEDS: NS 1,000 ML IV SCH ×2 (02:00→12:52)
[2019-02-09 06:48] LABS: AGAP 10; ALBUMIN 2.5 g/dL (3.5-5.0); ALKALINE PHOSPHATASE 153 U/L (32-104); BUN 15 mg/dL (8-22); CHLORIDE 111 mmol/L (98-107); COSMO 275; CREATININE 0.4 mg/dL (0.5-0.9); ESTIMATED GFR > 60; GLUCOSE 68 mg/dL (70-104); GOT 31 U/L (10-30); GPT 13 U/L (10-36); MAGNESIUM 1.8 mg/dL (1.5-2.7); POTASSIUM 4.6 mmol/L (3.5-5.1); SODIUM 138 mmol/L (136-145); TCO2 17 mmol/L (25-35)
--- NOTE | 2019-02-09 07:39 | EKG Report ---
Test Performed on : 02/07/2019 07:10:08 AM Test Reason : poss overdose Blood Pressure : / mmHG Vent. Rate : 072 BPM Atrial Rate : 072 BPM P-R Int : 158 ms QRS Dur : 078 ms QT Int : 402 ms P-R-T Axes : 038 -07 017 degrees QTc Int : 440 ms Normal sinus rhythm. Cannot rule out Anterior infarct (cited on or before 15-JAN-2019) Abnormal ECG When compared with ECG of 15-JAN-2019 20:21, (Unconfirmed) Questionable change in initial forces of Lateral leads Nonspecific T wave abnormality now evident in Inferior leads Unconfirmed Result
[2019-02-09 08:10] LABS: BASO# 0.01 X1000 (0.0-0.2); BASO% 0.3 % (0.0-0.8); EOS# 0.13 X1000 (0.0-0.7); EOS% 4.3 % (0.0-10.0); HEMATOCRIT 32.9 % (37.0-47.0); HEMOGLOBIN 9.8 g/dL (12.0-16.0); LYMPH# 1.19 X1000 (1.2-3.4); MCH 30.9 PG (27-31); MCHC 29.8 g/dL (33-37); MCV 103.8 FL (81-99); MONO# 0.18 X1000 (0.11-0.59); MONO% 5.9 % (1.7-9.3); MPV 10.1 FL (7.4-10.4); NEUT# 1.54 X1000 (1.4-6.5); NEUT% 50.5 % (42.2-75.2); PLT 126 X1000 (130-400); RBC 3.17 XMIL (4.2-5.4); RDW 15.4 % (11.5-14.5); WBC 3.05 X1000 (4.8-10.8)
[2019-02-09] MEDS: LYRICA PO SCH (08:25)
[2019-02-09] MEDS: VITAMIN B-1 PO SCH (08:25)
[2019-02-09] MEDS: LEXAPRO PO SCH (08:25)
[2019-02-09] MEDS: SUBOXONE 8 MG/2 MG SL SCH (08:34)
--- NOTE | 2019-02-09 10:16 | PROGRESS NOTE ---
DATE: 02/09/2019 SUBJECTIVE: Ms. Hurtado is awake and alert. She would like to go home. She feels like her children need her. We want to get physical therapy to make sure she is able to walk around and not falling. I have her back on her Suboxone. I also have her back on her Lexapro. I have recommended strongly that she go to drug rehab. She is Medicaid, so I do not know that we are going to be able to find anything that they are going to be able to afford. 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 OBJECTIVE: Vital Signs: Temp 98.9 degrees, pulse 65, respirations 16, blood pressure 87/53. HEENT: Pupils are equal and round. Lungs: Clear in all lung wynn. Cardiovascular: Regular rhythm and rate without murmur or S3. Abdomen: Soft. Skin: Warm and dry. Urine output is 3800 mL. LABORATORY DATA: This morning, white count 3050, hematocrit is 32, platelet count 126,000. Sodium 138, potassium 4.6, chloride 111, BUN 15, creatinine 0.4. Alkaline phosphatase 153, T4 was 0.89, TSH 4.04. ASSESSMENT AND PLAN: 1. Metabolic encephalopathy secondary to polypharmacy and drug overdose. She was positive for cannabinoids and barbiturates. I have restarted her Suboxone and her Lexapro. Strongly encouraged drug rehab. 2. Portal hypertension, history of cirrhosis. She is on Aldactone. 3. Normocytic anemia, which is mild. 4. Renal function, which looks good #6. 5. She is eating. Encourage oral intake. CURRENT ORDERS: She is on Suboxone 8 mg sublingual b.i.d., Lexapro 20 mg a day, normal saline 85 mL an hour, phenobarbital 130 mg IV every 6 hours p.r.n., Lyrica 100 mg p.o. daily, vitamin B1, 100 mg daily. We have physical therapy ordered. Bench Lathe Operator and Case Management are on the case. Have discussed with the every day, the situation. He does not want her discharged. He does not want, at this point, for her to be around his children. cc: Canelo Carvajal MD
[2019-02-10] MEDS: SUBOXONE 8 MG/2 MG SL SCH ×2 (01:18→08:12)
[2019-02-10] MEDS: VITAMIN B-1 PO SCH (08:12)
[2019-02-10] MEDS: LYRICA PO SCH (08:12)
[2019-02-10] MEDS: LEXAPRO PO SCH (08:13)
[2019-02-10] MEDS ORDERED: ALDACTONE PO SCH (09:00)
[2019-02-10] MEDS ORDERED: LASIX PO SCH (09:00)
--- NOTE | 2019-02-10 09:24 | PROGRESS NOTE ---
DATE: 02/10/2019 SUBJECTIVE: This patient is awake and alert. She is oriented x3. Physical therapy evaluated this patient. It looks like she does not have any limitation at this point. She has been placed back on her regular dose of Suboxone and Lexapro. Today, I will start this patient on spironolactone and Lasix, which is part of her home medications. It looks like the social services specialist and case management are involved. I am not quite sure about her situation at home. It looks like probably R has been involved. I will discuss the case with the social services specialist here. I will transfer this patient to the floor. As per the patient, she probably took an extra dose of Suboxone. As per the patient, she does not want to hurt herself. She does not have any suicide suicidal ideation. We discussed about her furosemide and also Aldactone. She explained that she needs that for her history of portal hypertension and cirrhosis. She has been having problems with lower extremity edema and actually she had a previous history also of DVT. She is not on anticoagulation at this moment but I will add Lovenox prophylactically. Also, apparently, she had a history of CHF but her last recent echocardiogram showed a good ejection fraction and no problems with the right ventricle. OBJECTIVE: Vital Signs: Temperature 97.8 degrees, pulse 71, respiratory rate 16, blood pressure 92/51, oxygen saturation 97% on room air. HEENT: Head normocephalic. No trauma. PERRLA. Neck: Supple. No JVD. No masses. Central trachea. Chest: Clear to auscultation. No wheezing or rales. Abdomen: Soft. Slightly distended. Nontender to palpation. Positive bowel sounds. Extremities: There is 1 to 2+ edema. No clubbing. No cyanosis. She does have multiple scars and they look fine. I think they are healing good. Laboratory: WBC 3, hemoglobin 9.8, hematocrit 32.9, platelets 126,000. Sodium 138, potassium 4.6, chloride 111, bicarbonate 17, BUN 15, creatinine 0.4, glucose 68, calcium 8. AST 31, ALT 13, alkaline phosphatase 153, albumin 2.5. ASSESSMENT AND PLAN: 1. Metabolic encephalopathy upon presentation. As per the patient, it looks like she took an extra dose or more than one dose of Suboxone. Now, she is completely alert, awake. She is oriented. No focal deficits. I will transfer this patient to the floor. I will find out with the social services specialist about her home situation. 2. Portal hypertension with a history of liver cirrhosis. I do have a CT scan that showed fatty liver but she has been placed by her doctor on furosemide and Aldactone, which I will continue. 3. Normocytic anemia. We will monitor. 4. History of deep venous thrombosis at the level of the lower extremities, already treated. She is not on anticoagulation. 5. History of chronic pain. Continue with Suboxone. 6. History of chronic swelling in bilateral lower extremities. Aware. Continue with furosemide and Aldactone. 7. We do have a urine toxicology that showed cannabinoids and barbiturates. As per the patient, she has been getting, by her doctor, CBD which is cannabinoids and also butalbital/acetaminophen/caffeine for her migraines. Those medications can explain her urine toxicology results. cc: Anton De La O MD
[2019-02-10] MEDS: PROAMATINE PO SCH ×2 (09:30→13:29)
[2019-02-10 12:36] VITALS: BP 94/57
--- NOTE | 2019-02-11 04:20 | DISCHARGE SUMMARY ---
ADMISSION DATE: 02/07/2019 DISCHARGE DATE: 02/10/2019 DISCHARGE DIAGNOSES: 1. Metabolic encephalopathy, resolved. Likely due to medication overdose. 2. Portal hypertension with history of liver cirrhosis. 3. Normocytic anemia. 4. History of deep venous thrombosis, not on anticoagulation at this moment. 5. History of chronic pain, on Suboxone. 6. History of chronic swelling in bilateral lower extremities. HOSPITAL COURSE: A 33-year-old female with a past medical history of necrotizing fasciitis in both lower extremities, cellulitis, liver cirrhosis, DVT, and she used to be on anticoagulation, chronic pain, on Suboxone, admitted on 02/07/2019 due to mental status changes. Apparently, as per the patient, she to probably an extra dose of her Suboxone and probably, also, the medication for the migraines, then she was having some confusion and she was not herself. As per the patient, she did not try to hurt herself or others, no suicidal ideation. She was admitted in the ICU. We stopped most of her medications and we put her back on doses slowly. We have a urine toxicology that showed cannabinoids and barbiturates. As per the patient, she is not smoking marijuana, but she has been using CBD, which has been recommended by her doctor, and the barbiturate has been explained by her medication for the migraines, which contains both butalbital. Today, this patient is completely alert and oriented, she is able to walk by herself and she wants to go home. I discussed the case with the hospice social worker, because apparently there is a case open with [facility]. Actually, they are known by [facility], apparently, it is not a new case for them. She is stable at this moment to go home and it looks like [facility] does not have a contraindication to do so. The hospice social worker talked to me Mrs Ligia Edwards, who is hospice social worker at [facility], and apparently, she will visit them today or tomorrow morning. Again, this patient is completely alert and oriented x3. She does not have focal deficits, she is able to walk by herself. She is not feeling weak and, as per the patient, she made a mistake and probably took an extra dose of her medications. PHYSICAL EXAMINATION: Vital signs: Temperature 98.6 degrees, pulse 68, respiratory rate 18, blood pressure 94/57, oxygen saturation 100% on room air. HEENT: Head normocephalic. No trauma. PERRLA. Neck: Supple. No JVD. No masses. Central trachea. Chest: Clear to auscultation. No wheezing. No rales. Abdomen: Soft, slightly distended, nontender to palpation. Positive bowel sounds. Extremities: 1 to 2+ lower extremity edema. No clubbing. No cyanosis. She does have multiple scars, and they are healing properly. Neurologic: This patient is alert, she is oriented. She is answering all my questions and moving all 4 extremities. LABORATORY: WBC 3, hemoglobin 9.8, hematocrit 32.9, platelets 126,000. Sodium 138, potassium 4.6, chloride 111, bicarbonate 17, BUN 15, creatinine 0.4. Glucose 68, calcium 8, AST 31, ALT 13, alkaline phosphatase 153, albumin 2.5. DISCHARGE MEDICATIONS: This patient will continue with the same medications that she was at home, except that I have recommended to stop the CBD and the medication for the migraine. Suboxone 8 mg/2 mg sublingual film twice a day, Lexapro 20 mg p.o. daily, Lasix 40 mg p.o. b.i.d., midodrine 5 mg p.o. t.i.d., ondansetron 8 mg p.o. q.4 hours as needed, Lyrica 100 mg p.o. daily, Aldactone 100 mg p.o. daily, and thiamine 100 mg p.o. q.a.m. TIME SPENT: Time discharging this patient 35 minutes. cc: Anton De La O MD
[2019-02-11] MEDS ORDERED: LOVENOX SUBQ SCH (09:00)
== END 2019-02-10 15:07 | disposition home or self-care (01) | DRG 917 ==
LOC: SUPCPDRO → ED 06:49 → ICU 12:57 → SUATTDRO 12:57
PROVIDERS: ATTEND Internal Medicine
CPT/HCPCS: 51701; 71010; 71045; 80048; 80053; 80101; 80301; 80307; 80324; 80345; 80346; 80353; 80358; 80361; 80365; 81001; 81025; 82550; 82607; 83735; 83992; 84439; 84443; 84484; 85025; 85610; 85730; 93005; 96374; 97162; 99285; A9270; G0431; G0434; G0479; G0480; J1885; J2060; J7030; P9612